=== PATIENT | male | born 1975 | race Caucasian/White ===

== ENCOUNTER 2018-01-21 18:29 | Inpatient (IN) ==
--- NOTE | 2018-01-21 19:00 | ED ---
HPI General Chief Complaint: Psychiatric Symptoms Stated Complaint: Maegan Smith Time Seen by Provider: 01/21/18 18:55 Source: patient Mode of arrival: other ([place]HO[place]) Limitations: no limitations History of Present Illness HPI Narrative: 42-year-old male presents the ED for psychiatric evaluation under [place] act and acted by law enforcement. Per the [place]ane act paperwork the patient made suicidal statements to his girlfriend, sent pictures of himself taking pills. When law enforcement encountered him he jumped into the [place] and was eventually pepper sprayed by [place] patrol and taken into custody. On presentation the patient is drowsy but arouses to voice. He answers questions appropriately. He denies suicidal ideation or any attempt at suicide today. He does endorse drinking "about 2 bottles of [place]." He states that he does not drink every day. He endorses history of asthma. No somatic complaints. Related Data Previous Rx's Medication Instructions Recorded folic acid 1 mg PO DAILY tab 01/23/18 thiamine HCl (vitamin B1) 100 mg PO DAILY tab 01/23/18 Allergies Allergy/AdvReac Type Severity Reaction Status Date / Time hazelnut Allergy Intermediate SOB/ASTHMA Verified 01/21/18 18:52 ATTACK Review of Systems ROS: all other systems reviewed are negative PMFSH Surgical History Surgical History No history of previous surgery (Acute) Family History Family History Father Asthma Sister Asthma Social History Social History Substance History: Active Abuse Second Hand Smoke Exposure: No Smoking Status: Current every day smoker Tobacco Type: Cigarettes Packs Per Day: 2 Cigarettes Per Day: 40.0 How Often Do You Have a Drink Containing Alcohol: 2 to 4 times a month Recent Travel in [facility] within the Last 8 Weeks: No Recent Out of Country Travel within the Last 8 Weeks: No Exam Narrative Exam Narrative: GENERAL: Well-nourished, well-developed white male no acute distress. SKIN: Focused skin assessment warm/dry. HEAD: Atraumatic. Normocephalic. EYES: Pupils equal and round. No scleral icterus. No injection or drainage. ENT: No nasal bleeding or discharge. Mucous membranes pink and moist. NECK: Trachea midline. No JVD. CARDIOVASCULAR: Regular rate and rhythm. No murmur appreciated. RESPIRATORY: No accessory muscle use. Clear to auscultation. Breath sounds equal bilaterally. GASTROINTESTINAL: Abdomen soft, non-tender, nondistended. Hepatic and splenic margins not palpable. MUSCULOSKELETAL: No obvious deformities. No clubbing. No cyanosis. No edema. NEUROLOGICAL: Somnolent, arouses to voice. Follows commands. Answers questions appropriately. No obvious cranial nerve deficits. Motor grossly within normal limits. Normal speech. PSYCHIATRIC: Appears intoxicated. Course Reevaluation(s) Reevaluation #1: Patient found with elevated Tylenol levels. The patient is more alert at this time. I discussed the lab findings with the patient. He states again "I don't know what I took." When asked why he took these medications he states "it was just 1 of those days." He is feeling nauseated and complains of being cold. Vitals stable. Initial Documented Vital Signs Pulse Rate 87 01/21/18 18:36 Respiratory Rate 16 01/21/18 18:36 Blood Pressure 115/83 01/21/18 18:36 Pulse Oximetry 98 01/21/18 18:36 Last Documented Vital Signs Temperature 98.2 F 01/24/18 04:00 Pulse Rate 63 01/24/18 04:00 Respiratory Rate 16 01/24/18 04:00 Blood Pressure 123/71 01/24/18 04:00 Pulse Oximetry 96 01/24/18 04:00 Medical Decision Making VERA Attestation VERA supervised visit: Yes Attestation: The history, exam, and medical decision-making in the associated midlevel provider note were completed with my assistance. I reviewed and agree with the findings presented. I attest that I had a [id number] encounter with the patient on the same day, and personally performed and documented my assessment and findings in the medical record. *My assessment and Findings: This is a 42-year-old male who presented to the emergency department under a Mcfarlane act for concern for depression and intoxication. Initially the patient did not provide any history that he took pills but given the patient's alcohol level was disproportionate to his altered mental status, acetaminophen level was obtained which was 232. Patient was started on n-acetylcysteine and admitted to the intensive care unit. Otherwise labs were unremarkable. MDM Narrative Medical decision making narrative: 42-year-old male presents the ED under [place] act after making suicidal threats to his girlfriend including sending pictures of himself "taking pills." On presentation the patient denies suicidal ideation. He denies taking any pills today. He states that he drank 2 bottles of rum. He is drowsy but arouses to voice, answers questions appropriately, no focal neuro deficits. Vitals stable. Basic lab work ordered and pending. CBC without acute findings. CMP unremarkable. Alcohol level 42. Acetaminophen level 232.9. Tox screen positive for cannabinoids. IV was established. Patient was administered a liter of fluid, acetylcysteine ordered. Poison control contacted. I spoke with Dr. Rawls who agrees to accept the patient to the ICU. Please see medicine and psychiatric notes for disposition. Medical Screen Exam Complete: Yes Emergency Medical Condition: Yes Differential Diagnosis Differential Diagnosis: depression versus mood disorder versus substance- induced mood disorder versus alcohol intoxication versus intentional overdose versus other Lab Data Result diagrams: 01/24/18 06:40 01/23/18 03:50 Lab Results 01/21/18 01/21/18 01/21/18 Range/Units 20:12 20:12 20:12 WBC 10.4 (4.0-11.0) th/mm3 RBC 4.85 (4.50-5.90) mil/mm3 Hgb 14.0 (13.0-17.0) gm/dL Hct 42.5 (39.0-51.0) % MCV 87.7 (80.0-100.0) fL MCH 28.8 (27.0-34.0) pg MCHC 32.9 (32.0-36.0) % RDW 13.9 (11.6-17.2) % Plt Count 263 (150-450) th/mm3 MPV 8.5 (7.0-11.0) fL Neut % (Auto) 82.3 H (16.0-70.0) % Lymph % (Auto) 12.4 (9.0-44.0) % Taney % (Auto) 4.8 (0.0-8.0) % Eos % (Auto) 0.1 (0.0-4.0) % Baso % (Auto) 0.4 (0.0-2.0) % Neut # (Auto) 8.6 H (1.8-7.7) th/mm3 Lymph # (Auto) 1.3 (1.0-4.8) th/mm3 Taney # (Auto) 0.5 (0.0-0.9) th/mm3 Eos # (Auto) 0.0 (0.0-0.4) th/mm3 Baso # (Auto) 0.0 (0.0-0.2) th/mm3 WBC Differential . Differential Comment Auto diff final PT (9.8-11.6) sec INR Ratio APTT (24.3-30.1) sec Fibrinogen (227-377) mg/dL Puncture Site Patient Temperature O2 Saturation (90-100) % ABG pH (7.380-7.420) ABG pCO2 (38-42) mmHg ABG pO2 (61-120) mmHg ABG HCO3 (22-26) mmol/L ABG O2 Content (12.0-20.0) Vol % ABG Base Excess (-2-2) mmol/L ABG Methemoglobin (0-2) % Juan Francisco Test Hemoglobin (12.0-16.0) G/DL Carboxyhemoglobin (0-4) % O2 Delivery Device Inspired O2 % Critical Value Sodium 141 (136-145) meq/L Potassium 3.7 (3.5-5.1) meq/L Chloride 110 H (98-107) meq/L Carbon Dioxide 18.3 L (21.0-32.0) meq/L Anion Gap 13 (5-15) meq/L BUN 11 (7-18) mg/dL Creatinine 1.17 (0.60-1.30) mg/dL Estimated GFR 69 L (>89) mL/min POC Glucose (68-110) mg/dl Random Glucose 116 H (74-106) mg/dL Osmolality (275-295) mosm/kg Calcium 8.6 (8.5-10.1) mg/dL Phosphorus (2.5-4.9) mg/dL Magnesium 2.0 (1.5-2.5) mg/dL Total Bilirubin 0.6 (0.2-1.0) mg/dL AST 14 L (15-37) U/L ALT 26 (12-78) U/L Alkaline Phosphatase 71 (45-117) U/L Total Protein 7.6 (6.4-8.2) g/dL Albumin 4.1 (3.4-5.0) g/dL TSH 1.090 (0.358-3.740) uIU/mL Nasal Screen MRSA (PCR) (Negative) Salicylates (2.8-20.0) mg/dL Urine Opiates Screen (Neg) Acetaminophen 232.9 H* (10.0-30.0) mcg/mL Ur Barbiturates Screen (Neg) Ur Amphetamines Screen (Neg) U Benzodiazepines Scrn (Neg) Urine Cocaine Screen (Neg) U Cannabinoids Screen (Neg) Serum Alcohol 42 H (0-5) mg/dL Blood Type Blood Type Recheck Antibody Screen 01/21/18 01/22/18 01/22/18 Range/Units 20:12 00:20 00:45 WBC (4.0-11.0) th/mm3 RBC (4.50-5.90) mil/mm3 Hgb (13.0-17.0) gm/dL Hct (39.0-51.0) % MCV (80.0-100.0) fL MCH (27.0-34.0) pg MCHC (32.0-36.0) % RDW (11.6-17.2) % Plt Count (150-450) th/mm3 MPV (7.0-11.0) fL Neut % (Auto) (16.0-70.0) % Lymph % (Auto) (9.0-44.0) % Taney % (Auto) (0.0-8.0) % Eos % (Auto) (0.0-4.0) % Baso % (Auto) (0.0-2.0) % Neut # (Auto) (1.8-7.7) th/mm3 Lymph # (Auto) (1.0-4.8) th/mm3 Taney # (Auto) (0.0-0.9) th/mm3 Eos # (Auto) (0.0-0.4) th/mm3 Baso # (Auto) (0.0-0.2) th/mm3 WBC Differential Differential Comment PT (9.8-11.6) sec INR Ratio APTT (24.3-30.1) sec Fibrinogen (227-377) mg/dL Puncture Site Patient Temperature O2 Saturation (90-100) % ABG pH (7.380-7.420) ABG pCO2 (38-42) mmHg ABG pO2 (61-120) mmHg ABG HCO3 (22-26) mmol/L ABG O2 Content (12.0-20.0) Vol % ABG Base Excess (-2-2) mmol/L ABG Methemoglobin (0-2) % Juan [place] Test Hemoglobin (12.0-16.0) G/DL Carboxyhemoglobin (0-4) % O2 Delivery Device Inspired O2 % Critical Value Sodium (136-145) meq/L Potassium (3.5-5.1) meq/L Chloride (98-107) meq/L Carbon Dioxide (21.0-32.0) meq/L Anion Gap (5-15) meq/L BUN (7-18) mg/dL Creatinine (0.60-1.30) mg/dL Estimated GFR (>89) mL/min POC Glucose (68-110) mg/dl Random Glucose (74-106) mg/dL Osmolality 301 H (275-295) mosm/kg Calcium (8.5-10.1) mg/dL Phosphorus (2.5-4.9) mg/dL Magnesium (1.5-2.5) mg/dL Total Bilirubin (0.2-1.0) mg/dL AST (15-37) U/L ALT (12-78) U/L Alkaline Phosphatase (45-117) U/L Total Protein (6.4-8.2) g/dL Albumin (3.4-5.0) g/dL TSH (0.358-3.740) uIU/mL Nasal Screen MRSA (PCR) (Negative) Salicylates 9.9 (2.8-20.0) mg/dL Urine Opiates Screen Neg (Neg) Acetaminophen (10.0-30.0) mcg/mL Ur Barbiturates Screen Neg (Neg) Ur Amphetamines Screen Neg (Neg) U Benzodiazepines Scrn Neg (Neg) Urine Cocaine Screen Neg (Neg) U Cannabinoids Screen Pos H (Neg) Serum Alcohol (0-5) mg/dL Blood Type Blood Type Recheck Antibody Screen 01/22/18 01/22/18 01/22/18 Range/Units 00:45 00:45 00:52 WBC (4.0-11.0) th/mm3 RBC (4.50-5.90) mil/mm3 Hgb (13.0-17.0) gm/dL Hct (39.0-51.0) % MCV (80.0-100.0) fL MCH (27.0-34.0) pg MCHC (32.0-36.0) % RDW (11.6-17.2) % Plt Count (150-450) th/mm3 MPV (7.0-11.0) fL Neut % (Auto) (16.0-70.0) % Lymph % (Auto) (9.0-44.0) % Taney % (Auto) (0.0-8.0) % Eos % (Auto) (0.0-4.0) % Baso % (Auto) (0.0-2.0) % Neut # (Auto) (1.8-7.7) th/mm3 Lymph # (Auto) (1.0-4.8) th/mm3 Taney # (Auto) (0.0-0.9) th/mm3 Eos # (Auto) (0.0-0.4) th/mm3 Baso # (Auto) (0.0-0.2) th/mm3 WBC Differential Differential Comment PT 11.6 (9.8-11.6) sec INR 1.1 Ratio APTT 23.2 L (24.3-30.1) sec Fibrinogen (227-377) mg/dL Puncture Site Patient Temperature O2 Saturation (90-100) % ABG pH (7.380-7.420) ABG pCO2 (38-42) mmHg ABG pO2 (61-120) mmHg ABG HCO3 (22-26) mmol/L ABG O2 Content (12.0-20.0) Vol % ABG Base Excess (-2-2) mmol/L ABG Methemoglobin (0-2) % Juan Francisco Test Hemoglobin (12.0-16.0) G/DL Carboxyhemoglobin (0-4) % O2 Delivery Device Inspired O2 % Critical Value Sodium (136-145) meq/L Potassium (3.5-5.1) meq/L Chloride (98-107) meq/L Carbon Dioxide (21.0-32.0) meq/L Anion Gap (5-15) meq/L BUN (7-18) mg/dL Creatinine (0.60-1.30) mg/dL Estimated GFR (>89) mL/min POC Glucose 150 H (68-110) mg/dl Random Glucose (74-106) mg/dL Osmolality (275-295) mosm/kg Calcium (8.5-10.1) mg/dL Phosphorus (2.5-4.9) mg/dL Magnesium 2.0 (1.5-2.5) mg/dL Total Bilirubin (0.2-1.0) mg/dL AST (15-37) U/L ALT (12-78) U/L Alkaline Phosphatase (45-117) U/L Total Protein (6.4-8.2) g/dL Albumin (3.4-5.0) g/dL TSH (0.358-3.740) uIU/mL Nasal Screen MRSA (PCR) (Negative) Salicylates (2.8-20.0) mg/dL Urine Opiates Screen (Neg) Acetaminophen (10.0-30.0) mcg/mL Ur Barbiturates Screen (Neg) Ur Amphetamines Screen (Neg) U Benzodiazepines Scrn (Neg) Urine Cocaine Screen (Neg) U Cannabinoids Screen (Neg) Serum Alcohol (0-5) mg/dL Blood Type Blood Type Recheck Antibody Screen 01/22/18 01/22/18 01/22/18 Range/Units 02:00 02:00 02:45 WBC (4.0-11.0) th/mm3 RBC (4.50-5.90) mil/mm3 Hgb (13.0-17.0) gm/dL Hct (39.0-51.0) % MCV (80.0-100.0) fL MCH (27.0-34.0) pg MCHC (32.0-36.0) % RDW (11.6-17.2) % Plt Count (150-450) th/mm3 MPV (7.0-11.0) fL Neut % (Auto) (16.0-70.0) % Lymph % (Auto) (9.0-44.0) % Taney % (Auto) (0.0-8.0) % Eos % (Auto) (0.0-4.0) % Baso % (Auto) (0.0-2.0) % Neut # (Auto) (1.8-7.7) th/mm3 Lymph # (Auto) (1.0-4.8) th/mm3 Taney # (Auto) (0.0-0.9) th/mm3 Eos # (Auto) (0.0-0.4) th/mm3 Baso # (Auto) (0.0-0.2) th/mm3 WBC Differential Differential Comment PT (9.8-11.6) sec INR Ratio APTT (24.3-30.1) sec Fibrinogen (227-377) mg/dL Puncture Site Left radial Patient Temperature 98.6 O2 Saturation 95 (90-100) % ABG pH 7.41 (7.380-7.420) ABG pCO2 37 L (38-42) mmHg ABG pO2 107 (61-120) mmHg ABG HCO3 23 (22-26) mmol/L ABG O2 Content 17.5 (12.0-20.0) Vol % ABG Base Excess -1.0 (-2-2) mmol/L ABG Methemoglobin 1.0 (0-2) % Juan Francisco Test Present Hemoglobin 13.0 (12.0-16.0) G/DL Carboxyhemoglobin 1.9 (0-4) % O2 Delivery Device Room air Inspired O2 21 % Critical Value No Sodium 145 (136-145) meq/L Potassium 3.7 (3.5-5.1) meq/L Chloride 108 H (98-107) meq/L Carbon Dioxide 22.4 (21.0-32.0) meq/L Anion Gap 15 (5-15) meq/L BUN 11 (7-18) mg/dL Creatinine 1.07 (0.60-1.30) mg/dL Estimated GFR 76 L (>89) mL/min POC Glucose (68-110) mg/dl Random Glucose 173 H (74-106) mg/dL Osmolality (275-295) mosm/kg Calcium 7.7 L D (8.5-10.1) mg/dL Phosphorus 3.6 (2.5-4.9) mg/dL Magnesium (1.5-2.5) mg/dL Total Bilirubin (0.2-1.0) mg/dL AST (15-37) U/L ALT (12-78) U/L Alkaline Phosphatase (45-117) U/L Total Protein (6.4-8.2) g/dL Albumin (3.4-5.0) g/dL TSH (0.358-3.740) uIU/mL Nasal Screen MRSA (PCR) (Negative) Salicylates (2.8-20.0) mg/dL Urine Opiates Screen (Neg) Acetaminophen 146.9 H (10.0-30.0) mcg/mL Ur Barbiturates Screen (Neg) Ur Amphetamines Screen (Neg) U Benzodiazepines Scrn (Neg) Urine Cocaine Screen (Neg) U Cannabinoids Screen (Neg) Serum Alcohol (0-5) mg/dL Blood Type Blood Type Recheck Antibody Screen 01/22/18 01/22/18 01/22/18 Range/Units 03:15 03:50 03:50 WBC (4.0-11.0) th/mm3 RBC (4.50-5.90) mil/mm3 Hgb 13.4 (13.0-17.0) gm/dL Hct (39.0-51.0) % MCV (80.0-100.0) fL MCH (27.0-34.0) pg MCHC (32.0-36.0) % RDW (11.6-17.2) % Plt Count (150-450) th/mm3 MPV (7.0-11.0) fL Neut % (Auto) (16.0-70.0) % Lymph % (Auto) (9.0-44.0) % Taney % (Auto) (0.0-8.0) % Eos % (Auto) (0.0-4.0) % Baso % (Auto) (0.0-2.0) % Neut # (Auto) (1.8-7.7) th/mm3 Lymph # (Auto) (1.0-4.8) th/mm3 Taney # (Auto) (0.0-0.9) th/mm3 Eos # (Auto) (0.0-0.4) th/mm3 Baso # (Auto) (0.0-0.2) th/mm3 WBC Differential Differential Comment PT (9.8-11.6) sec INR Ratio APTT (24.3-30.1) sec Fibrinogen (227-377) mg/dL Puncture Site Patient Temperature O2 Saturation (90-100) % ABG pH (7.380-7.420) ABG pCO2 (38-42) mmHg ABG pO2 (61-120) mmHg ABG HCO3 (22-26) mmol/L ABG O2 Content (12.0-20.0) Vol % ABG Base Excess (-2-2) mmol/L ABG Methemoglobin (0-2) % Juan Francisco Test Hemoglobin (12.0-16.0) G/DL Carboxyhemoglobin (0-4) % O2 Delivery Device Inspired O2 % Critical Value Sodium (136-145) meq/L Potassium (3.5-5.1) meq/L Chloride (98-107) meq/L Carbon Dioxide (21.0-32.0) meq/L Anion Gap (5-15) meq/L BUN (7-18) mg/dL Creatinine (0.60-1.30) mg/dL Estimated GFR (>89) mL/min POC Glucose (68-110) mg/dl Random Glucose (74-106) mg/dL Osmolality (275-295) mosm/kg Calcium (8.5-10.1) mg/dL Phosphorus (2.5-4.9) mg/dL Magnesium (1.5-2.5) mg/dL Total Bilirubin (0.2-1.0) mg/dL AST (15-37) U/L ALT (12-78) U/L Alkaline Phosphatase (45-117) U/L Total Protein (6.4-8.2) g/dL Albumin (3.4-5.0) g/dL TSH (0.358-3.740) uIU/mL Nasal Screen MRSA (PCR) Not detected (Negative) Salicylates (2.8-20.0) mg/dL Urine Opiates Screen (Neg) Acetaminophen (10.0-30.0) mcg/mL Ur Barbiturates Screen (Neg) Ur Amphetamines Screen (Neg) U Benzodiazepines Scrn (Neg) Urine Cocaine Screen (Neg) U Cannabinoids Screen (Neg) Serum Alcohol (0-5) mg/dL Blood Type A Positive Blood Type Recheck Required Antibody Screen Negative 01/22/18 01/22/18 01/22/18 Range/Units 03:50 12:55 15:27 WBC (4.0-11.0) th/mm3 RBC (4.50-5.90) mil/mm3 Hgb 12.8 L 13.1 (13.0-17.0) gm/dL Hct (39.0-51.0) % MCV (80.0-100.0) fL MCH (27.0-34.0) pg MCHC (32.0-36.0) % RDW (11.6-17.2) % Plt Count (150-450) th/mm3 MPV (7.0-11.0) fL Neut % (Auto) (16.0-70.0) % Lymph % (Auto) (9.0-44.0) % Taney % (Auto) (0.0-8.0) % Eos % (Auto) (0.0-4.0) % Baso % (Auto) (0.0-2.0) % Neut # (Auto) (1.8-7.7) th/mm3 Lymph # (Auto) (1.0-4.8) th/mm3 Taney # (Auto) (0.0-0.9) th/mm3 Eos # (Auto) (0.0-0.4) th/mm3 Baso # (Auto) (0.0-0.2) th/mm3 WBC Differential Differential Comment PT (9.8-11.6) sec INR Ratio APTT (24.3-30.1) sec Fibrinogen 274 (227-377) mg/dL Puncture Site Patient Temperature O2 Saturation (90-100) % ABG pH (7.380-7.420) ABG pCO2 (38-42) mmHg ABG pO2 (61-120) mmHg ABG HCO3 (22-26) mmol/L ABG O2 Content (12.0-20.0) Vol % ABG Base Excess (-2-2) mmol/L ABG Methemoglobin (0-2) % Juan Francisco Test Hemoglobin (12.0-16.0) G/DL Carboxyhemoglobin (0-4) % O2 Delivery Device Inspired O2 % Critical Value Sodium (136-145) meq/L Potassium (3.5-5.1) meq/L Chloride (98-107) meq/L Carbon Dioxide (21.0-32.0) meq/L Anion Gap (5-15) meq/L BUN (7-18) mg/dL Creatinine (0.60-1.30) mg/dL Estimated GFR (>89) mL/min POC Glucose (68-110) mg/dl Random Glucose (74-106) mg/dL Osmolality (275-295) mosm/kg Calcium (8.5-10.1) mg/dL Phosphorus (2.5-4.9) mg/dL Magnesium (1.5-2.5) mg/dL Total Bilirubin (0.2-1.0) mg/dL AST (15-37) U/L ALT (12-78) U/L Alkaline Phosphatase (45-117) U/L Total Protein (6.4-8.2) g/dL Albumin (3.4-5.0) g/dL TSH (0.358-3.740) uIU/mL Nasal Screen MRSA (PCR) (Negative) Salicylates (2.8-20.0) mg/dL Urine Opiates Screen (Neg) Acetaminophen (10.0-30.0) mcg/mL Ur Barbiturates Screen (Neg) Ur Amphetamines Screen (Neg) U Benzodiazepines Scrn (Neg) Urine Cocaine Screen (Neg) U Cannabinoids Screen (Neg) Serum Alcohol (0-5) mg/dL Blood Type Blood Type Recheck Antibody Screen 01/22/18 01/22/18 01/22/18 Range/Units 15:27 20:47 20:47 WBC (4.0-11.0) th/mm3 RBC (4.50-5.90) mil/mm3 Hgb (13.0-17.0) gm/dL Hct (39.0-51.0) % MCV (80.0-100.0) fL MCH (27.0-34.0) pg MCHC (32.0-36.0) % RDW (11.6-17.2) % Plt Count (150-450) th/mm3 MPV (7.0-11.0) fL Neut % (Auto) (16.0-70.0) % Lymph % (Auto) (9.0-44.0) % Taney % (Auto) (0.0-8.0) % Eos % (Auto) (0.0-4.0) % Baso % (Auto) (0.0-2.0) % Neut # (Auto) (1.8-7.7) th/mm3 Lymph # (Auto) (1.0-4.8) th/mm3 Taney # (Auto) (0.0-0.9) th/mm3 Eos # (Auto) (0.0-0.4) th/mm3 Baso # (Auto) (0.0-0.2) th/mm3 WBC Differential Differential Comment PT 12.7 H (9.8-11.6) sec INR 1.3 Ratio APTT (24.3-30.1) sec Fibrinogen (227-377) mg/dL Puncture Site Patient Temperature O2 Saturation (90-100) % ABG pH (7.380-7.420) ABG pCO2 (38-42) mmHg ABG pO2 (61-120) mmHg ABG HCO3 (22-26) mmol/L ABG O2 Content (12.0-20.0) Vol % ABG Base Excess (-2-2) mmol/L ABG Methemoglobin (0-2) % [place] Francisco Test Hemoglobin (12.0-16.0) G/DL Carboxyhemoglobin (0-4) % O2 Delivery Device Inspired O2 % Critical Value Sodium 144 140 (136-145) meq/L Potassium 3.1 L 3.3 L (3.5-5.1) meq/L Chloride 109 H 106 (98-107) meq/L Carbon Dioxide 25.9 26.0 (21.0-32.0) meq/L Anion Gap 9 8 (5-15) meq/L BUN 9 9 (7-18) mg/dL Creatinine 1.29 1.26 (0.60-1.30) mg/dL Estimated GFR 61 L 63 L (>89) mL/min POC Glucose (68-110) mg/dl Random Glucose 91 81 (74-106) mg/dL Osmolality (275-295) mosm/kg Calcium 8.3 L 8.4 L (8.5-10.1) mg/dL Phosphorus (2.5-4.9) mg/dL Magnesium (1.5-2.5) mg/dL Total Bilirubin 0.3 0.3 (0.2-1.0) mg/dL AST 13 L 11 L (15-37) U/L ALT 27 26 (12-78) U/L Alkaline Phosphatase 60 58 (45-117) U/L Total Protein 6.4 D 6.4 (6.4-8.2) g/dL Albumin 3.2 L D 3.1 L (3.4-5.0) g/dL TSH (0.358-3.740) uIU/mL Nasal Screen MRSA (PCR) (Negative) Salicylates (2.8-20.0) mg/dL Urine Opiates Screen (Neg) Acetaminophen 5.3 L (10.0-30.0) mcg/mL Ur Barbiturates Screen (Neg) Ur Amphetamines Screen (Neg) U Benzodiazepines Scrn (Neg) Urine Cocaine Screen (Neg) U Cannabinoids Screen (Neg) Serum Alcohol (0-5) mg/dL Blood Type Blood Type Recheck Antibody Screen 01/22/18 01/23/18 01/23/18 Range/Units 20:47 03:49 03:50 WBC 12.0 H (4.0-11.0) th/mm3 RBC 4.39 L (4.50-5.90) mil/mm3 Hgb 12.8 L 12.8 L (13.0-17.0) gm/dL Hct 38.0 L (39.0-51.0) % MCV 86.4 (80.0-100.0) fL MCH 29.1 (27.0-34.0) pg MCHC 33.7 (32.0-36.0) % RDW 14.0 (11.6-17.2) % Plt Count 245 (150-450) th/mm3 MPV 8.6 (7.0-11.0) fL Neut % (Auto) 72.0 H (16.0-70.0) % Lymph % (Auto) 20.8 (9.0-44.0) % Taney % (Auto) 5.7 (0.0-8.0) % Eos % (Auto) 0.9 (0.0-4.0) % Baso % (Auto) 0.6 (0.0-2.0) % Neut # (Auto) 8.7 H (1.8-7.7) th/mm3 Lymph # (Auto) 2.5 (1.0-4.8) th/mm3 Taney # (Auto) 0.7 (0.0-0.9) th/mm3 Eos # (Auto) 0.1 (0.0-0.4) th/mm3 Baso # (Auto) 0.1 (0.0-0.2) th/mm3 WBC Differential . Differential Comment Auto diff final PT 12.6 H (9.8-11.6) sec INR 1.2 Ratio APTT (24.3-30.1) sec Fibrinogen (227-377) mg/dL Puncture Site Patient Temperature O2 Saturation (90-100) % ABG pH (7.380-7.420) ABG pCO2 (38-42) mmHg ABG pO2 (61-120) mmHg ABG HCO3 (22-26) mmol/L ABG O2 Content (12.0-20.0) Vol % ABG Base Excess (-2-2) mmol/L ABG Methemoglobin (0-2) % Juan Francisco Test Hemoglobin (12.0-16.0) G/DL Carboxyhemoglobin (0-4) % O2 Delivery Device Inspired O2 % Critical Value Sodium (136-145) meq/L Potassium (3.5-5.1) meq/L Chloride (98-107) meq/L Carbon Dioxide (21.0-32.0) meq/L Anion Gap (5-15) meq/L BUN (7-18) mg/dL Creatinine (0.60-1.30) mg/dL Estimated GFR (>89) mL/min POC Glucose (68-110) mg/dl Random Glucose (74-106) mg/dL Osmolality (275-295) mosm/kg Calcium (8.5-10.1) mg/dL Phosphorus (2.5-4.9) mg/dL Magnesium (1.5-2.5) mg/dL Total Bilirubin (0.2-1.0) mg/dL AST (15-37) U/L ALT (12-78) U/L Alkaline Phosphatase (45-117) U/L Total Protein (6.4-8.2) g/dL Albumin (3.4-5.0) g/dL TSH (0.358-3.740) uIU/mL Nasal Screen MRSA (PCR) (Negative) Salicylates (2.8-20.0) mg/dL Urine Opiates Screen (Neg) Acetaminophen (10.0-30.0) mcg/mL Ur Barbiturates Screen (Neg) Ur Amphetamines Screen (Neg) U Benzodiazepines Scrn (Neg) Urine Cocaine Screen (Neg) U Cannabinoids Screen (Neg) Serum Alcohol (0-5) mg/dL Blood Type Blood Type Recheck Antibody Screen 01/23/18 01/24/18 Range/Units 03:50 06:40 WBC 9.2 (4.0-11.0) th/mm3 RBC 4.31 L (4.50-5.90) mil/mm3 Hgb 12.6 L (13.0-17.0) gm/dL Hct 36.6 L (39.0-51.0) % MCV 84.7 (80.0-100.0) fL MCH 29.3 (27.0-34.0) pg MCHC 34.5 (32.0-36.0) % RDW 14.0 (11.6-17.2) % Plt Count 243 (150-450) th/mm3 MPV 8.9 (7.0-11.0) fL Neut % (Auto) 70.3 H (16.0-70.0) % Lymph % (Auto) 21.8 (9.0-44.0) % Taney % (Auto) 5.8 (0.0-8.0) % Eos % (Auto) 1.6 (0.0-4.0) % Baso % (Auto) 0.5 (0.0-2.0) % Neut # (Auto) 6.5 (1.8-7.7) th/mm3 Lymph # (Auto) 2.0 (1.0-4.8) th/mm3 Taney # (Auto) 0.5 (0.0-0.9) th/mm3 Eos # (Auto) 0.1 (0.0-0.4) th/mm3 Baso # (Auto) 0.0 (0.0-0.2) th/mm3 WBC Differential . Differential Comment Auto diff final PT (9.8-11.6) sec INR Ratio APTT (24.3-30.1) sec Fibrinogen (227-377) mg/dL Puncture Site Patient Temperature O2 Saturation (90-100) % ABG pH (7.380-7.420) ABG pCO2 (38-42) mmHg ABG pO2 (61-120) mmHg ABG HCO3 (22-26) mmol/L ABG O2 Content (12.0-20.0) Vol % ABG Base Excess (-2-2) mmol/L ABG Methemoglobin (0-2) % [place] Test Hemoglobin (12.0-16.0) G/DL Carboxyhemoglobin (0-4) % O2 Delivery Device Inspired O2 % Critical Value Sodium 142 (136-145) meq/L Potassium 3.3 L (3.5-5.1) meq/L Chloride 107 (98-107) meq/L Carbon Dioxide 28.0 (21.0-32.0) meq/L Anion Gap 7 (5-15) meq/L BUN 8 (7-18) mg/dL Creatinine 1.01 (0.60-1.30) mg/dL Estimated GFR 81 L (>89) mL/min POC Glucose (68-110) mg/dl Random Glucose 110 H (74-106) mg/dL Osmolality (275-295) mosm/kg Calcium 8.5 (8.5-10.1) mg/dL Phosphorus (2.5-4.9) mg/dL Magnesium (1.5-2.5) mg/dL Total Bilirubin 0.4 (0.2-1.0) mg/dL AST 10 L (15-37) U/L ALT 22 (12-78) U/L Alkaline Phosphatase 56 (45-117) U/L Total Protein 6.2 L (6.4-8.2) g/dL Albumin 3.1 L (3.4-5.0) g/dL TSH (0.358-3.740) uIU/mL Nasal Screen MRSA (PCR) (Negative) Salicylates (2.8-20.0) mg/dL Urine Opiates Screen (Neg) Acetaminophen (10.0-30.0) mcg/mL Ur Barbiturates Screen (Neg) Ur Amphetamines Screen (Neg) U Benzodiazepines Scrn (Neg) Urine Cocaine Screen (Neg) U Cannabinoids Screen (Neg) Serum Alcohol (0-5) mg/dL Blood Type Blood Type Recheck Antibody Screen Imaging Data Radiologist's impression: Abdomen/Pelvis CT 01/22/18 00:00 CONCLUSION: 1. No acute findings within the abdomen and pelvis. Scattered colonic diverticula. Chest X-Ray 01/23/18 02:08 CONCLUSION: The lungs are clear. Discharge Plan Discharge Disposition Patient Disposition: 30 Still Patient Discharge Condition Condition: Stable Discharge Order Discharge Orders: Discharge Order (Routine); Ordered 01/24/18 Ordered By: Iftikhar Lopez Discharge Details Discharge Comment: may go to regular psych Physicians Team ED Provider: Isabelle Barraza ED Midlevel Provider: Yuliet Fleming Primary Care Provider: Primary Care Ora Rowe Attending Provider: Iftikhar Lopez Other Providers: Raymond Hoover Harsh V Status ED Status: Left Department Discharge Information Discharge Date/Time: 01/22/18 04:33
[2018-01-21 20:27] LABS: Baso % (Auto) 0.4 % (0.0-2.0); Eos % (Auto) 0.1 % (0.0-4.0); Hematocrit 42.5 % (39.0-51.0); Lymph # (Auto) 1.3 th/mm3 (1.0-4.8); Lymph % (Auto) 12.4 % (9.0-44.0); Mean Corpuscular HGB Conc 32.9 % (32.0-36.0); Mean Corpuscular Hemoglobin 28.8 pg (27.0-34.0); Mean Corpuscular Volume 87.7 fL (80.0-100.0); Mean Platelet Volume 8.5 fL (7.0-11.0); Mono # (Auto) 0.5 th/mm3 (0.0-0.9); Mono % (Auto) 4.8 % (0.0-8.0); Neut # (Auto) 8.6 th/mm3 (1.8-7.7); Neut % (Auto) 82.3 % (16.0-70.0); Platelet Count 263 th/mm3 (150-450); Red Blood Count 4.85 mil/mm3 (4.50-5.90); Red Cell Distribution Width 13.9 % (11.6-17.2); White Blood Count 10.4 th/mm3 (4.0-11.0)
[2018-01-21 20:49] LABS: Albumin 4.1 g/dL (3.4-5.0); Anion Gap 13 meq/L (5-15); Aspartate Aminotransferase 14 U/L (15-37); Blood Urea Nitrogen 11 mg/dL (7-18); Calcium 8.6 mg/dL (8.5-10.1); Carbon Dioxide 18.3 meq/L (21.0-32.0); Chloride 110 meq/L (98-107); Glomerular Filtration Rate 69 mL/min (>89); Glucose,Random 116 mg/dL (74-106); Potassium 3.7 meq/L (3.5-5.1); Sodium 141 meq/L (136-145)
[2018-01-21 21:01] LABS: Alanine Aminotransferase 26 U/L (12-78); Alkaline Phosphatase 71 U/L (45-117); Total Protein 7.6 g/dL (6.4-8.2)
[2018-01-21 21:15] LABS: Alcohol 42 mg/dL (0-5)
[2018-01-22] MEDS ORDERED: Sod Chloride 0.9% Inj 1,000 ML IV.SIG ONE (00:08)
[2018-01-22] MEDS ORDERED: DEXTROSE 5% IV.SIG ONE ×6 (00:08)
[2018-01-22] MEDS ORDERED: WATER IV.SIG ONE ×6 (00:08)
[2018-01-22] MEDS ORDERED: ACETYLCYSTEINE IV.SIG ONE ×6 (00:08)
[2018-01-22 00:50] LABS: Amphetamine Screen,Urine Neg (Neg); Barbiturate Screen,Urine Neg (Neg); Cannabinoid Screen,Urine Pos (Neg); Cocaine Screen,Urine Neg (Neg)
[2018-01-22 00:51] LABS: Opiate Screen,Urine Neg (Neg)
[2018-01-22 01:17] LABS: Activated Partial Thrombo Time 23.2 sec (24.3-30.1); INR 1.1 Ratio; Prothrombin Time 11.6 sec (9.8-11.6)
[2018-01-22] MEDS ORDERED: Bisacodyl 10 MG Supp RECTAL PRN (02:05)
--- NOTE | 2018-01-22 02:11 | P.HPCC ---
History of Present Illness Service: Critical care medicine Primary Care Physician: No Primary Care Physician Chief Complaint: Tylenol ingestion History of Present Illness: 42-year-old male with past medical history of asthma who was brought into [facility] emergency department by law enforcement under [place] Act. Reportedly he had made suicidal statements to his girlfriend and had texted her pictures of himself taking pills. When law enforcement encountered him he jumped into the [employer] and eventually was subdued with the aid of pepper spray. When he was evaluated by the emergency department provider he denied suicidality and said only that he "drank 2 bottles of Captain [place]". Laboratory workup revealed EtOH level of 42, Tylenol level 233, salicylate level 9.9, UDS +THC. Bicarb was 18 with anion gap of 13 and normal creatinine. Transaminases are not elevated. Coags are pending. Mucomyst IV has been initiated. He has had some vomiting. When I confronted him, he eventually admitted to taking multiple pills "sometime during the afternoon [of 01/21]" stating "I cleaned out my medicine cabinet". He states he thought these were primarily anti-inflammatory medications that he had been prescribed when he had a prior knee injury. He denies any prior prescriptions for psychotropic medications, anticonvulsants, or antihypertensives and denies ingestion of iron. He has a prior history of [place] act in 2016 after a breakup with his girlfriend when he told law enforcement that he "wanted to wrap his vehicle around a tree and ". He apparently refused labs during that ED visit but had indicated that he drank "a couple of bottles of Captain" in an effort to fall asleep. He was evaluated by psychiatry but was not hospitalized. States he has had some abdominal pain and bloody stools for 1 month related to "diverticulitis". - Diagnosis (1) Psychiatric exam requested by authority (2) Acetaminophen overdose (3) Marijuana abuse (4) Tobacco abuse (5) Asthma (6) Alcohol consumption binge drinking (7) Vomiting (8) Hyperglycemia Inpatient Certification: I certify that the inpatient services were ordered in accordance with Medicare regulations governing the order. This includes certification that hospital inpatient services are reasonable and necessary and in the case of services not specified as inpatient-only under 42 CFR 419.22(n), that they are appropriately provided as inpatient services in accordance to with the 2-midnight benchmark under 43 CFR 412.3(e) Estimated Total Length of Stay (Days): 4 Plans for Post Hospital Care: Not yet determined Review of Systems All other systems reviewed negative except as stated in HPI PMFSH - History History Provided By: Patient - Medical History Medical History: Medical History (Last Updated 01/22/18 @ 02:40 by Elsi Rawls MD) Asthma Diverticulitis - Surgical History Surgical History: Surgical History (Last Reviewed 01/25/18 @ 13:15 by IVAN Bishop) No history of previous surgery - Family History Family History: Family History (Last Updated 01/22/18 @ 02:40 by Elsi Rawls MD) Father Asthma Sister Asthma - Tobacco History Second Hand Smoke Exposure: No Smoking Status: Current every day smoker Packs Per Day: 2 - Alcohol History How Often Do You Have a Drink Containing Alcohol: 2 to 4 times a month - Substance Use History Substance History: Active Abuse - Substance Use Type Alcohol Status: Active - Travel History [facility] Travel in the [facility] Within the Last 8 Weeks: No Recent Travel Out of the Country Within the Last 8 Weeks: No - Immunization History Tetanus Immunization: >5 Years Medications and Allergies Active Medications: Active Medications Albuterol (Albuterol Neb (Mark)) 2.5 mg NEB Q2HR NEB PRN PRN Reason: SHORTNESS OF BREATH/WHEEZING Lactated Ringer's (Lr 1000 Ml Inj) 1,000 mls @ 100 mls/hr IV.CONT .Q10H MARK Sodium Chloride (Ns Flush) 2 ml IV.FLUSH PRN PRN PRN Reason: FLUSH AFTER USING IV ACCESS Allergies Allergy/AdvReac Type Severity Reaction Status Date / Time hazelnut Allergy Intermediate SOB/ASTHMA Verified 01/21/18 18:52 ATTACK Results - Labs CBC & Chem 7: 01/24/18 06:40 01/23/18 03:50 Labs: Short CBC 01/21/18 Range/Units 20:12 WBC 10.4 (4.0-11.0) th/mm3 Hgb 14.0 (13.0-17.0) gm/dL Hct 42.5 (39.0-51.0) % Plt Count 263 (150-450) th/mm3 BMP 01/21/18 20:12 Sodium 141 Potassium 3.7 Chloride 110 H Carbon Dioxide 18.3 L BUN 11 Creatinine 1.17 Calcium 8.6 Liver Function 01/21/18 Range/Units 20:12 Total Bilirubin 0.6 (0.2-1.0) mg/dL AST 14 L (15-37) U/L ALT 26 (12-78) U/L Alkaline Phosphatase 71 (45-117) U/L Albumin 4.1 (3.4-5.0) g/dL Exam Vital signs: Vital Signs 01/21/18 18:36 01/21/18 20:40 01/22/18 00:54 Temperature 97.9 F Pulse Rate 87 72 Respiratory Rate 16 Blood Pressure 115/83 116/74 Pulse Oximetry 98 98 96 01/22/18 00:55 01/22/18 02:04 Temperature Pulse Rate 68 65 Respiratory Rate 18 18 Blood Pressure 162/88 H 172/92 H Pulse Oximetry 97 Intake & Output 01/21/18 01/21/18 01/22/18 06:59 18:59 06:59 Intake Total 1000 / 1000 Balance 1000 / 1000 Weight 95.451 kg Intake: IV 1000 / 1000 NS Inj 1,000 ML @ Wide Open IV. 1000 / 1000 SIG BOLUS ONE Rx#:[id number] Narrative: GENERAL: Well-nourished, well-developed patient who is laying in ED stretcher, repeatedly asking for water to drink. SKIN: Warm and dry. HEAD: Atraumatic. Normocephalic. EYES: Pupils equal and round, 3 mm and reactive to 2 mm bilaterally.. No scleral icterus. Bilateral conjunctival injection. ENT: No nasal bleeding. +rhinorrhea. NECK: Trachea midline. No JVD. CARDIOVASCULAR: Regular rate and rhythm. No murmurs rubs or gallops. RESPIRATORY: Breathing comfortably no accessory muscle use. On room air. Clear to auscultation bilaterally. GASTROINTESTINAL: Abdomen soft, non-tender, nondistended. Bowel sounds present. MUSCULOSKELETAL: Extremities without clubbing, cyanosis, or edema. No obvious deformities. NEUROLOGICAL: Awake and alert, oriented to person place year.. No obvious cranial nerve deficits. Motor grossly within normal limits without focal deficit, moving all extremities.. Normal speech. Caprini VTE Risk Assessment Caprini VTE Risk Assessment: Moderate/High Risk (score >= 2) Caprini Risk Assessment Model: Point Value = 1 Point Value = 2 Point Value = 3 Point Value = 5 Age 41-60 Minor surgery BMI > 25 kg/m2 Swollen legs Varicose veins or History of unexplained or recurrent spontaneous Oral contraceptives or hormone replacement Sepsis (< 1 month) Serious lung disease, including pneumonia (< 1 month) Abnormal pulmonary function Acute myocardial infarction Congestive heart failure (< 1 month) History of inflammatory bowel disease Medical patient at bed rest Age 61-74 Arthroscopic surgery Major open surgery (> 45 min) Laparoscopic surgery (> 45 min) Malignancy Confined to bed (> 72 hours) Immobilizing plaster cast Central venous access Age >= 75 History of VTE Family history of VTE Factor V Leiden Prothrombin [id number] Lupus anticoagulant Anticardiolipin antibodies Elevated serum homocysteine Heparin-induced thrombocytopenia Other congenital or acquired thrombophilia Stroke (< 1 month) Elective arthroplasty Hip, pelvis, or leg fracture Acute spinal cord injury (< 1 month) Prophylaxis Regimen: Total Risk Factor Score Risk Level Prophylaxis Regimen 0-1 Low Early ambulation 2 Moderate Order ONE of the following: *Sequential Compression Device (SCD) *Heparin 5000 units SQ BID 3-4 Higher Order ONE of the following medications: *Heparin 5000 units SQ TID *Enoxaparin/Lovenox 40 mg SQ daily (WT < 150 kg, CrCl > 30 mL/min) *Enoxaparin/Lovenox 30 mg SQ daily (WT < 150 kg, CrCl > 10-29 mL/min) *Enoxaparin/Lovenox 30 mg SQ BID (WT < 150 kg, CrCl > 30 mL/min) AND/OR *Sequential Compression Device (SCD) 5 or more Highest Order ONE of the following medications: *Heparin 5000 units SQ TID (Preferred with Epidurals) *Enoxaparin/Lovenox 40 mg SQ daily (WT < 150 kg, CrCl > 30 mL/min) *Enoxaparin/Lovenox 30 mg SQ daily (WT < 150 kg, CrCl > 10-29 mL/min) *Enoxaparin/Lovenox 30 mg SQ BID (WT < 150 kg, CrCl > 30 mL/min) AND *Sequential Compression Device (SCD) Assessment and Plan - Problem List (1) Psychiatric exam requested by authority Code(s): Z04.6 - Encounter for general psychiatric examination, requested by authority Status: Acute (2) Acetaminophen overdose Code(s): T39.1X1A - Poisoning by 4-Aminophenol derivatives, accidental ( unintentional), initial encounter Status: Acute (3) Marijuana abuse Code(s): F12.10 - Cannabis abuse, uncomplicated Status: Chronic (4) Tobacco abuse Code(s): Z72.0 - Tobacco use Status: Chronic (5) Asthma Code(s): J45.909 - Unspecified asthma, uncomplicated Status: Chronic (6) Alcohol consumption binge drinking Code(s): F10.10 - Alcohol abuse, uncomplicated Status: Chronic (7) Vomiting Code(s): R11.10 - Vomiting, unspecified Status: Acute (8) Hyperglycemia Code(s): R73.9 - Hyperglycemia, unspecified Status: Acute - Assessment and Plan Plan: NEURO: Acetaminophen overdose Alcohol abuse Marijuana use Mucomyst IV 72 hour protocol has been ordered, however will followup LFT, acetaminophen level and INR prior to 20 hour manju to guide duration of therapy ( ordered for 21:00 on 01/22). Time of ingestion is unclear but appears mucomyst is being started within 12 hours of ingestion and transaminases are not elevated. Repeat acetaminophen level is downtrending. No osmolar gap. He denies daily alcohol use or alcohol dependence. Will monitor for signs of withdrawal. Thiamine/folic acid daily. Poison control was notified by ED and will follow. PSYCH: [place] act Placed under [place] act by law enforcement. Psychiatry consult. RESP: Asthma Tobacco abuse Tobacco cessation counseling discussed Albuterol every 2 hours as needed for wheezing CV: EKG - QRS 116, normal QTc. GI: Vomiting Hx diverticulitis Zofran as needed for nausea FEN/RENAL: Monitor intake and output. Monitor electrolytes and replace as indicated. Check phosphorus level now. F/u BMP to monitor for worsening acidosis as unknown co-ingestion. ID: Monitor for signs and symptoms of infection. HEME: No acute hematologic issues ENDO: Mild stress hyperglycemia. Follow-up glucose on repeat BMP. Initiate insulin if needed TSH WNL PROPH: SCDs/heparin 5000 units subcu every 12 hours for DVT prophylaxis. Protonix 40 mg IV daily for stress ulcer prophylaxis. ACCESS: Peripheral IV providing adequate access. Full code Level 3 H&P
[2018-01-22 02:25] LABS: Acetaminophen 146.9 mcg/mL (10.0-30.0); Phosphorus 3.6 mg/dL (2.5-4.9)
[2018-01-22 02:37] LABS: Calcium 7.7 mg/dL (8.5-10.1); Carbon Dioxide 22.4 meq/L (21.0-32.0); Potassium 3.7 meq/L (3.5-5.1)
[2018-01-22 02:53] LABS: ABG PCO2 37 mmHg (38-42); ABG PO2 107 mmHg (61-120)
[2018-01-22] MEDS: Heparin - SQ 10,000 UNITS/ML Vial SQ SCH ×2 (03:24→13:49)
[2018-01-22] MEDS: Chlorhexidine Gluconate 2% 1 Pack (2 Cloths) TOPICAL SCH (03:25)
[2018-01-22] MEDS ORDERED: Chlorhexidine Gluconate 2% 1 Pack (2 Cloths) TOPICAL PRN (04:00)
[2018-01-22] MEDS: Pantoprazole Inj 40 MG Vial IV.PUSH SCH (08:45)
[2018-01-22] MEDS: Senna/Docusate Sodium 8.6/50 MG Tablet PO SCH ×2 (09:54→20:16)
[2018-01-22] MEDS: Folic Acid 1 MG Tablet PO SCH (09:54)
--- NOTE | 2018-01-22 14:10 | P.CONGI ---
History of Present Illness Consult date: 01/22/18 Consult reason: Hematemesis Chief complaint: Tylenol toxicity, intentional overdose History of Present Illness: This is a well-nourished 42-year-old male who came to the hospital on 2017 [place] act, post intentional Tylenol overdose. Patient is currently being monitored in the intensive care setting and initially had nausea and vomiting with some bright red streaks of blood noted. It was also noted per the record that patient had drank a substantial amount of alcohol. Currently patient does have a decreased appetite, some nausea but no vomiting patient denies any abdominal pain no history or current diarrhea or constipation states last bowel movement brown and formed 24 hours ago. Patient does note a history of some dyspepsia onset greater than one year and notices symptoms daily usually worse after eating. Patient's had no previous EGD or colonoscopy performed and no family history of colon cancer. Patient does note history of diverticulitis greater than 3 years ago and noted an 8-day hospital stay during that time. Labs reviewed with current hemoglobin 14, PT/INR 1.1, bilirubin and LFTs are normal Tylenol level last seen was 146.9. Patient is currently undergoing Tylenol detox in the intensive care setting. He is alert and oriented and answering simple questions. Gastroenterology was consulted to assist with possible GI bleeding, red tinged blood seen with vomiting, and according to the record some bloody stools and abdominal pain times 1 month before current admission. Review of Systems All other systems reviewed negative except as stated in HPI PMFSH - History History Provided By: Patient - Medical History Medical History: Medical History (Last Updated 01/22/18 @ 02:40 by Elsi Rawls MD) Asthma Diverticulitis - Surgical History Surgical History: Surgical History (Last Reviewed 01/21/18 @ 19:09 by Sade Vasquez) No history of previous surgery - Family History Family History: Family History (Last Updated 01/22/18 @ 02:40 by Elsi Rawls MD) Father Asthma Sister Asthma - Tobacco History Second Hand Smoke Exposure: No Tobacco Use In Past 30 Days: Yes Smoking Status: Current every day smoker Tobacco Type: Cigarettes Packs Per Day: 2 - Alcohol History How Often Do You Have a Drink Containing Alcohol: 2 to 4 times a month - Substance Use History Substance History: Active Abuse - Substance Use Type Alcohol Status: Active - Travel History Recent Travel in the [place] Within the Last 8 Weeks: No Recent Travel Out of the Country Within the Last 8 Weeks: No - Immunization History Tetanus Immunization: >5 Years Medications and Allergies Active Medications: Active Medications Al Hydroxide/Mg Hydroxide (Milk Of Magnesia Liq) 30 ml PO Q12H PRN PRN Reason: Mild Constipation Albuterol (Albuterol Neb (Prn)) 2.5 mg NEB Q2HR NEB PRN PRN Reason: SHORTNESS OF BREATH/WHEEZING Bisacodyl (Dulcolax Supp) 10 mg RECTAL DAILY PRN PRN Reason: SEVERE CONSITIPATION Chlorhexidine Gluconate (Chlorhexidine 2% Cloth) 3 pack TOPICAL DAILY@0400 [facility] Stop: 01/27/18 03:59 Last Admin: 01/22/18 03:25 Dose: 3 pack Chlorhexidine Gluconate (Chlorhexidine 2% Cloth) 3 pack TOPICAL DAILY@0400 PRN PRN Reason: Extra cloth needed Stop: 01/27/18 03:59 Folic Acid (Folic Acid) 1 mg PO DAILY [facility] Last Admin: 01/22/18 09:54 Dose: Not Given Heparin Sodium (Porcine) (Heparin Inj) 5,000 units SQ Q12H [facility] Last Admin: 01/22/18 13:49 Dose: Not Given Lactated Ringer's (Lr 1000 Ml Inj) 1,000 mls @ 100 mls/hr IV.CONT .Q10H [facility] Last Admin: 01/22/18 03:24 Dose: 100 mls/hr Lactulose (Lactulose Liq) 30 ml PO DAILY PRN PRN Reason: SEVERE CONSITIPATION Ondansetron HCl (Zofran Inj) 4 mg IV.PUSH Q6H PRN PRN Reason: NAUSEA OR VOMITING Last Admin: 01/22/18 03:24 Dose: 4 mg Pantoprazole Sodium (Protonix Inj) 40 mg IV.PUSH DAILY [facility] Last Admin: 01/22/18 08:45 Dose: 40 mg Senna/Docusate Sodium (Kathrine-Colace) 1 tab PO BID [facility] Last Admin: 01/22/18 09:54 Dose: Not Given Sennosides (Senokot) 17.2 mg PO Q12H PRN PRN Reason: Moderate Constipation Sodium Chloride (Ns Flush) 2 ml IV.FLUSH BID [facility] Last Admin: 01/22/18 09:54 Dose: 2 ml Sodium Chloride (Ns Flush) 2 ml IV.FLUSH PRN PRN PRN Reason: FLUSH AFTER USING IV ACCESS Thiamine HCl (Vitamin B1) 100 mg PO DAILY [facility] Last Admin: 01/22/18 09:55 Dose: Not Given Allergies Allergy/AdvReac Type Severity Reaction Status Date / Time hazelnut Allergy Intermediate SOB/ASTHMA Verified 01/21/18 18:52 ATTACK Home Medications Medication Instructions Recorded Confirmed Type No Known Home Medications 01/21/18 01/21/18 History Exam Vital signs: Vital Signs 01/21/18 18:36 01/21/18 20:40 01/22/18 00:54 Temperature 97.9 F Pulse Rate 87 72 Respiratory Rate 16 Blood Pressure 115/83 116/74 Pulse Oximetry 98 98 96 01/22/18 00:55 01/22/18 02:04 01/22/18 03:00 Temperature Pulse Rate 68 65 Respiratory Rate 18 18 Blood Pressure 162/88 H 172/92 H 180/106 H Pulse Oximetry 97 01/22/18 03:06 01/22/18 03:07 01/22/18 03:50 Temperature Pulse Rate 85 93 H 62 Respiratory Rate 30 H 31 H 17 Blood Pressure 180/106 H 167/96 H Pulse Oximetry 97 01/22/18 04:00 01/22/18 05:00 01/22/18 06:00 Temperature 98.8 F Pulse Rate 63 63 81 Respiratory Rate 17 20 30 H Blood Pressure 149/88 H 179/95 H 183/92 H Pulse Oximetry 97 99 100 01/22/18 06:03 01/22/18 07:00 01/22/18 08:00 Temperature 98.4 F Pulse Rate 57 L 61 71 Respiratory Rate 17 16 19 Blood Pressure 183/92 H Pulse Oximetry 99 97 01/22/18 09:00 01/22/18 10:00 01/22/18 11:00 Temperature Pulse Rate 60 81 76 Respiratory Rate 16 18 25 H Blood Pressure Pulse Oximetry 01/22/18 12:00 01/22/18 12:01 01/22/18 13:00 Temperature 98.4 F Pulse Rate 73 71 61 Respiratory Rate 31 H 29 H 16 Blood Pressure 185/104 H 169/95 H Pulse Oximetry Intake & Output 01/21/18 01/22/18 01/22/18 18:59 06:59 18:59 Intake Total 1795.25 / 1795.25 Output Total 400 / 400 Balance 1395.25 / 1395.25 Weight 95.451 kg 92.5 kg Intake: IV 1795.25 / 1795.25 Acetadote Inj 14,300 MG In D5W 271.5 / 271.5 Inj 200 ML @ 271.5 mls/hr IV. SIG ONCE ONE Rx#:[id number] Acetadote Inj 4,750 MG In D5W 523.75 / 523.75 Inj 500 ML @ 130.938 mls/hr IV. SIG ONCE ONE Rx#:[id number] NS Inj 1,000 ML @ Wide Open IV. 1000 / 1000 SIG BOLUS ONE Rx#:[id number] Oral 0 / 0 Output: Urine 300 / 300 Emesis 100 / 100 Other: # Bowel Movements 0 Weight On Admission 92.1 kg - Constitutional mild distress, disheveled, cooperative - Routine HEENT Exam Head: Present: normocephalic ENT: Present: mucous membranes moist - Routine Respiratory Exam Present: accessory muscle use (No shortness of breath at rest) - Routine Cardiovascular Exam Present: S1, S2 - Routine Abdominal Exam Present: soft, normoactive bowel sounds (No obvious tenderness to light palpation) - Routine Skin Exam Present: intact - Routine Neurological Exam Present: alert (Eyes closed but answers simple questions and arouses easily) Results - Labs CBC & Chem 7: 01/22/18 12:55 01/22/18 02:00 Labs: Laboratory Results - last 24 hr 01/21/18 01/21/18 01/21/18 20:12 20:12 20:12 WBC 10.4 RBC 4.85 Hgb 14.0 Hct 42.5 MCV 87.7 MCH 28.8 MCHC 32.9 RDW 13.9 Plt Count 263 MPV 8.5 Neut % (Auto) 82.3 H Lymph % (Auto) 12.4 Hartley % (Auto) 4.8 Eos % (Auto) 0.1 Baso % (Auto) 0.4 Neut # (Auto) 8.6 H Lymph # (Auto) 1.3 Hartley # (Auto) 0.5 Eos # (Auto) 0.0 Baso # (Auto) 0.0 WBC Differential . Differential Comment Auto diff final PT INR APTT Fibrinogen Puncture Site Patient Temperature O2 Saturation ABG pH ABG pCO2 ABG pO2 ABG HCO3 ABG O2 Content ABG Base Excess ABG Methemoglobin Juan Francisco Test Hemoglobin Carboxyhemoglobin O2 Delivery Device Inspired O2 Critical Value Sodium 141 Potassium 3.7 Chloride 110 H Carbon Dioxide 18.3 L Anion Gap 13 BUN 11 Creatinine 1.17 Estimated GFR 69 L POC Glucose Random Glucose 116 H Osmolality Calcium 8.6 Phosphorus Magnesium 2.0 Total Bilirubin 0.6 AST 14 L ALT 26 Alkaline Phosphatase 71 Total Protein 7.6 Albumin 4.1 TSH 1.090 Nasal Screen MRSA (PCR) Salicylates Urine Opiates Screen Acetaminophen 232.9 H* Ur Barbiturates Screen Ur Amphetamines Screen U Benzodiazepines Scrn Urine Cocaine Screen U Cannabinoids Screen Serum Alcohol 42 H Blood Type Blood Type Recheck Antibody Screen 01/21/18 01/22/18 01/22/18 20:12 00:20 00:45 WBC RBC Hgb Hct MCV MCH MCHC RDW Plt Count MPV Neut % (Auto) Lymph % (Auto) Hartley % (Auto) Eos % (Auto) Baso % (Auto) Neut # (Auto) Lymph # (Auto) Hartley # (Auto) Eos # (Auto) Baso # (Auto) WBC Differential Differential Comment PT INR APTT Fibrinogen Puncture Site Patient Temperature O2 Saturation ABG pH ABG pCO2 ABG pO2 ABG HCO3 ABG O2 Content ABG Base Excess ABG Methemoglobin Juan Francisco Test Hemoglobin Carboxyhemoglobin O2 Delivery Device Inspired O2 Critical Value Sodium Potassium Chloride Carbon Dioxide Anion Gap BUN Creatinine Estimated GFR POC Glucose Random Glucose Osmolality 301 H Calcium Phosphorus Magnesium Total Bilirubin AST ALT Alkaline Phosphatase Total Protein Albumin TSH Nasal Screen MRSA (PCR) Salicylates 9.9 Urine Opiates Screen Neg Acetaminophen Ur Barbiturates Screen Neg Ur Amphetamines Screen Neg U Benzodiazepines Scrn Neg Urine Cocaine Screen Neg U Cannabinoids Screen Pos H Serum Alcohol Blood Type Blood Type Recheck Antibody Screen 01/22/18 01/22/18 01/22/18 00:45 00:45 00:52 WBC RBC Hgb Hct MCV MCH MCHC RDW Plt Count MPV Neut % (Auto) Lymph % (Auto) Hartley % (Auto) Eos % (Auto) Baso % (Auto) Neut # (Auto) Lymph # (Auto) Hartley # (Auto) Eos # (Auto) Baso # (Auto) WBC Differential Differential Comment PT 11.6 INR 1.1 APTT 23.2 L Fibrinogen Puncture Site Patient Temperature O2 Saturation ABG pH ABG pCO2 ABG pO2 ABG HCO3 ABG O2 Content ABG Base Excess ABG Methemoglobin Juan Francisco Test Hemoglobin Carboxyhemoglobin O2 Delivery Device Inspired O2 Critical Value Sodium Potassium Chloride Carbon Dioxide Anion Gap BUN Creatinine Estimated GFR POC Glucose 150 H Random Glucose Osmolality Calcium Phosphorus Magnesium 2.0 Total Bilirubin AST ALT Alkaline Phosphatase Total Protein Albumin TSH Nasal Screen MRSA (PCR) Salicylates Urine Opiates Screen Acetaminophen Ur Barbiturates Screen Ur Amphetamines Screen U Benzodiazepines Scrn Urine Cocaine Screen U Cannabinoids Screen Serum Alcohol Blood Type Blood Type Recheck Antibody Screen 01/22/18 01/22/18 01/22/18 02:00 02:00 02:45 WBC RBC Hgb Hct MCV MCH MCHC RDW Plt Count MPV Neut % (Auto) Lymph % (Auto) Hartley % (Auto) Eos % (Auto) Baso % (Auto) Neut # (Auto) Lymph # (Auto) Hartley # (Auto) Eos # (Auto) Baso # (Auto) WBC Differential Differential Comment PT INR APTT Fibrinogen Puncture Site Left radial Patient Temperature 98.6 O2 Saturation 95 ABG pH 7.41 ABG pCO2 37 L ABG pO2 107 ABG HCO3 23 ABG O2 Content 17.5 ABG Base Excess -1.0 ABG Methemoglobin 1.0 Juan Francisco Test Present Hemoglobin 13.0 Carboxyhemoglobin 1.9 O2 Delivery Device Room air Inspired O2 21 Critical Value No Sodium 145 Potassium 3.7 Chloride 108 H Carbon Dioxide 22.4 Anion Gap 15 BUN 11 Creatinine 1.07 Estimated GFR 76 L POC Glucose Random Glucose 173 H Osmolality Calcium 7.7 L D Phosphorus 3.6 Magnesium Total Bilirubin AST ALT Alkaline Phosphatase Total Protein Albumin TSH Nasal Screen MRSA (PCR) Salicylates Urine Opiates Screen Acetaminophen 146.9 H Ur Barbiturates Screen Ur Amphetamines Screen U Benzodiazepines Scrn Urine Cocaine Screen U Cannabinoids Screen Serum Alcohol Blood Type Blood Type Recheck Antibody Screen 01/22/18 01/22/18 01/22/18 03:15 03:50 03:50 WBC RBC Hgb 13.4 Hct MCV MCH MCHC RDW Plt Count MPV Neut % (Auto) Lymph % (Auto) Hartley % (Auto) Eos % (Auto) Baso % (Auto) Neut # (Auto) Lymph # (Auto) Hartley # (Auto) Eos # (Auto) Baso # (Auto) WBC Differential Differential Comment PT INR APTT Fibrinogen Puncture Site Patient Temperature O2 Saturation ABG pH ABG pCO2 ABG pO2 ABG HCO3 ABG O2 Content ABG Base Excess ABG Methemoglobin Juan Francisco Test Hemoglobin Carboxyhemoglobin O2 Delivery Device Inspired O2 Critical Value Sodium Potassium Chloride Carbon Dioxide Anion Gap BUN Creatinine Estimated GFR POC Glucose Random Glucose Osmolality Calcium Phosphorus Magnesium Total Bilirubin AST ALT Alkaline Phosphatase Total Protein Albumin TSH Nasal Screen MRSA (PCR) Not detected Salicylates Urine Opiates Screen Acetaminophen Ur Barbiturates Screen Ur Amphetamines Screen U Benzodiazepines Scrn Urine Cocaine Screen U Cannabinoids Screen Serum Alcohol Blood Type A Positive Blood Type Recheck Required Antibody Screen Negative 01/22/18 01/22/18 03:50 12:55 WBC RBC Hgb 12.8 L Hct MCV MCH MCHC RDW Plt Count MPV Neut % (Auto) Lymph % (Auto) Hartley % (Auto) Eos % (Auto) Baso % (Auto) Neut # (Auto) Lymph # (Auto) Hartley # (Auto) Eos # (Auto) Baso # (Auto) WBC Differential Differential Comment PT INR APTT Fibrinogen 274 Puncture Site Patient Temperature O2 Saturation ABG pH ABG pCO2 ABG pO2 ABG HCO3 ABG O2 Content ABG Base Excess ABG Methemoglobin Juan Francisco Test Hemoglobin Carboxyhemoglobin O2 Delivery Device Inspired O2 Critical Value Sodium Potassium Chloride Carbon Dioxide Anion Gap BUN Creatinine Estimated GFR POC Glucose Random Glucose Osmolality Calcium Phosphorus Magnesium Total Bilirubin AST ALT Alkaline Phosphatase Total Protein Albumin TSH Nasal Screen MRSA (PCR) Salicylates Urine Opiates Screen Acetaminophen Ur Barbiturates Screen Ur Amphetamines Screen U Benzodiazepines Scrn Urine Cocaine Screen U Cannabinoids Screen Serum Alcohol Blood Type Blood Type Recheck Antibody Screen Assessment and Plan - Plan 42-year-old male who came to the hospital on 01/21/2018 [place] act, post intentional Tylenol overdose. Patient is currently being monitored in the intensive care setting and initially had nausea and vomiting with some bright red streaks of blood noted. It was also noted per the record that patient had drank a substantial amount of alcohol. Currently patient does have a decreased appetite, some nausea but no vomiting patient denies any abdominal pain no history or current diarrhea or constipation states last bowel movement brown and formed 24 hours ago. Patient does note a history of some dyspepsia onset greater than one year and notices symptoms daily usually worse after eating. Patient's had no previous EGD, and no family history of colon cancer. Patient does note history of diverticulitis greater than 3 years ago and noted an 8-day hospital stay during that time. Labs reviewed with current hemoglobin 14, PT/ INR 1.1, bilirubin and LFTs are normal Tylenol level last seen was 146.9. Patient is currently undergoing Tylenol detox in the intensive care setting. He is alert and oriented and answering simple questions. Gastroenterology was consulted to assist with possible GI bleeding, red tinged blood seen with vomiting, and according to the record some bloody stools and abdominal pain times 1 month before current admission. Hematemesis, bright red blood tinged vomitus, possibly related to gastritis, symptoms could be stress related Dyspepsia symptoms of GERD almost daily greater than 1 year, takes no medication , states Tums gives him nauseated feeling. Symptoms could be stress related Abdominal pain and bloody stools times 1 month per the record, history of diverticulitis, but denies any previous EGD, colonoscopy approximately 3 years ago if not longer, no family history of colon cancer. No CT yet for comparison and no IV antibiotics, possible diverticulitis needs to be ruled out. Symptoms could be stress related Intentional Tylenol overdose, [place] act, according to the record over a breakup with girlfriend, currently in the intensive care setting but plan is to move to private room today Labs reviewed hemoglobin 14, INR 1.1, bilirubin and LFTs normal, last Tylenol level once 46.9, EtOH 42 on admission Plan Diet as tolerated Consent for EGD in the morning, patient is alert and oriented, stable vital signs and is supposed to be moving to a private room today Monitor labs with special attention to any obvious bleeding Start Flagyl 500 mg every 8 IV Start Cipro 400 mg IV every 12 CT scan of abdomen and pelvis with contrast, need to evaluate for possible diverticulitis, if patient has diverticulitis will need colonoscopy outpatient in approximately 6- 8 weeks Supportive care Further recommendations to follow Patient was seen per myself and Dr. Boykin, note was written on his behalf
[2018-01-22] MEDS: Ciprofloxacin 400 MG/200 ML 400 MG/200 ML PIGGYBACK IV.SIG SCH (15:05)
[2018-01-22 17:08] LABS: Alanine Aminotransferase 27 U/L (12-78); Albumin 3.2 g/dL (3.4-5.0); Anion Gap 9 meq/L (5-15); Aspartate Aminotransferase 13 U/L (15-37); Blood Urea Nitrogen 9 mg/dL (7-18); Calcium 8.3 mg/dL (8.5-10.1); Carbon Dioxide 25.9 meq/L (21.0-32.0); Chloride 109 meq/L (98-107); Glomerular Filtration Rate 61 mL/min (>89); Glucose,Random 91 mg/dL (74-106); Potassium 3.1 meq/L (3.5-5.1); Sodium 144 meq/L (136-145)
[2018-01-22 17:09] LABS: Alkaline Phosphatase 60 U/L (45-117); Total Protein 6.4 g/dL (6.4-8.2)
--- NOTE | 2018-01-22 18:03 | P.CONPSY ---
Provisional Diagnosis Admission Date: January 22, 2018 01:05 History of Present Illness Service: psychiatry Consult date: 01/22/18 Primary Care Provider: No Primary Care Physician Chief Complaint: Tylenol ingestion History of Present Illness: This is a request for a psychiatric consult. Documentation was reviewed, case was discussed with nursing and patient was evaluated. Patient is a 42-year-old male with with a history of a previous Mcfarlane act. Patient was initially brought to the ER after an intentional overdose on Tylenol combination with "a bottle of Captjeaneth Bruno's." Patient is pleasant during the interview but he is evasive, guarded, and is minimizing the severity and likely the circumstances surrounding this event. Per record patient was taking pictures of himself taking Tylenol which today he denies. Patient claims that the last thing he remembers was buying a bottle of liquor at the liquor store, beginning to drink and then waking up in the hospital. Patient admits to recent life stressors but denies yesterday or the recent past has been anything outside of the norm. Stressors include his ex- moving to [place] and taking 2 of his kids. Patient denies any recent depressive symptoms, manic symptoms, or psychosis. Patient claims this was an impulsive act and he will had no ideation or planning. Patient denies being anxious but later admits to smoking marijuana every night for sleep and anxiety. Denies panic attacks. He denies regular use of alcohol and says his last drink was 1 he had his previous Mcfarlane act admission here 2 years ago. Patient says that today he no longer has suicidal homicidal ID. He says that he would never hurt himself because of his "kids." Past psych: Per record, patient was admitted 2 years ago with the details noted below. Today, patient is persistent saying that he never had suicidal thoughts and this was all a misunderstanding. However, he admits that the stressor was his ex- cheating on him. 40-year-old white male presents to emergency department under Mcfarlane act by PD. According to the Mcfarlane act the patient had made suicidal statements. He has stated that he was given a wrap his car around a tree. The patient states that he is upset with his fiance. He states that he caught her cheating on him. He is in the process of moving out now. He denies any toxic ingestions. He denies any drugs. Positive tobacco. He does admit to alcohol. He denies making any statements of self-harm. He denies any suicidal ideation. No homicidal ideation. Patient denies ever following up with outpatient psychiatry. Denies any history of psychotropic medications. Denies any other suicide attempts or suicidal thoughts. Denies a history of cutting Past medical: See chart Past Famhx: Denies Past Social: Patient has a total of 5 kids to of which she continues to pay for child support. 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 Denies any substance use besides nightly marijuana. He is in a relationship right now that is "on and off." He says he has a few close friends. He has no access to guns PMFSH - History History Provided By: Patient - Medical History Medical History: Medical History (Last Reviewed 01/22/18 @ 18:00 by Dick Hernandez DO) Asthma Diverticulitis - Surgical History Surgical History: Surgical History (Last Reviewed 01/21/18 @ 19:09 by Sade Vasquez) No history of previous surgery - Family History Family History: Family History (Last Updated 01/22/18 @ 02:40 by Elsi Rawls MD) Father Asthma Sister Asthma - Tobacco History Second Hand Smoke Exposure: No Tobacco Use In Past 30 Days: Yes Smoking Status: Current every day smoker Tobacco Type: Cigarettes Packs Per Day: 2 - Alcohol History How Often Do You Have a Drink Containing Alcohol: 2 to 4 times a month - Substance Use History Substance History: Active Abuse - Substance Use Type Alcohol Status: Active - Travel History Recent Travel in the [facility] Within the Last 8 Weeks: No Recent Travel Out of the Country Within the Last 8 Weeks: No - Immunization History Tetanus Immunization: >5 Years Medications and Allergies Active Medications: Active Medications Al Hydroxide/Mg Hydroxide (Milk Of Naseem Lawton) 30 ml PO Q12H PRN PRN Reason: Mild Constipation Albuterol (Albuterol Neb (Prn)) 2.5 mg NEB Q2HR NEB PRN PRN Reason: SHORTNESS OF BREATH/WHEEZING Bisacodyl (Dulcolax Supp) 10 mg RECTAL DAILY PRN PRN Reason: SEVERE CONSITIPATION Chlorhexidine Gluconate (Chlorhexidine 2% Cloth) 3 pack TOPICAL DAILY@0400 [facility] Stop: 01/27/18 03:59 Last Admin: 01/22/18 03:25 Dose: 3 pack Chlorhexidine Gluconate (Chlorhexidine 2% Cloth) 3 pack TOPICAL DAILY@0400 PRN PRN Reason: Extra cloth needed Stop: 01/27/18 03:59 Folic Acid (Folic Acid) 1 mg PO DAILY [facility] Last Admin: 01/22/18 09:54 Dose: Not Given Heparin Sodium (Porcine) (Heparin Inj) 5,000 units SQ Q12H [facility] Last Admin: 01/22/18 13:49 Dose: Not Given Lactated Ringer's (Lr 1000 Ml Inj) 1,000 mls @ 100 mls/hr IV.CONT .Q10H [facility] Last Admin: 01/22/18 14:42 Dose: 100 mls/hr Metronidazole/Sodium Chloride (Flagyl 500 Mg Inj) 100 mls @ 100 mls/hr IV.SIG Q8H [facility] Last Admin: 01/22/18 16:22 Dose: 100 mls/hr Ciprofloxacin/Dextrose (Cipro 400 Mg/200 Ml Inj) 400 mg in 200 mls @ 200 mls/ hr IV.SIG Q12H [facility] Last Infusion: 01/22/18 16:25 Dose: Infused Lactulose (Lactulose Liq) 30 ml PO DAILY PRN PRN Reason: SEVERE CONSITIPATION Ondansetron HCl (Zofran Inj) 4 mg IV.PUSH Q6H PRN PRN Reason: NAUSEA OR VOMITING Last Admin: 01/22/18 03:24 Dose: 4 mg Pantoprazole Sodium (Protonix Inj) 40 mg IV.PUSH DAILY [facility] Last Admin: 01/22/18 08:45 Dose: 40 mg Senna/Docusate Sodium (Kathrine-Colace) 1 tab PO BID [facility] Last Admin: 01/22/18 09:54 Dose: Not Given Sennosides (Senokot) 17.2 mg PO Q12H PRN PRN Reason: Moderate Constipation Sodium Chloride (Ns Flush) 2 ml IV.FLUSH BID [facility] Last Admin: 01/22/18 09:54 Dose: 2 ml Sodium Chloride (Ns Flush) 2 ml IV.FLUSH PRN PRN PRN Reason: FLUSH AFTER USING IV ACCESS Thiamine HCl (Vitamin B1) 100 mg PO DAILY [facility] Last Admin: 01/22/18 09:55 Dose: Not Given Allergies Allergy/AdvReac Type Severity Reaction Status Date / Time hazelnut Allergy Intermediate SOB/ASTHMA Verified 01/21/18 18:52 ATTACK Home Medications Medication Instructions Recorded Confirmed Type No Known Home Medications 01/21/18 01/21/18 History Exam Vital signs: Vital Signs 01/21/18 18:36 01/21/18 20:40 01/22/18 00:54 Temperature 97.9 F Pulse Rate 87 72 Respiratory Rate 16 Blood Pressure 115/83 116/74 Pulse Oximetry 98 98 96 01/22/18 00:55 01/22/18 02:04 01/22/18 03:00 Temperature Pulse Rate 68 65 Respiratory Rate 18 18 Blood Pressure 162/88 H 172/92 H 180/106 H Pulse Oximetry 97 01/22/18 03:06 01/22/18 03:07 01/22/18 03:50 Temperature Pulse Rate 85 93 H 62 Respiratory Rate 30 H 31 H 17 Blood Pressure 180/106 H 167/96 H Pulse Oximetry 97 01/22/18 04:00 01/22/18 05:00 01/22/18 06:00 Temperature 98.8 F Pulse Rate 63 63 81 Respiratory Rate 17 20 30 H Blood Pressure 149/88 H 179/95 H 183/92 H Pulse Oximetry 97 99 100 01/22/18 06:03 01/22/18 07:00 01/22/18 08:00 Temperature 98.4 F Pulse Rate 57 L 61 71 Respiratory Rate 17 16 19 Blood Pressure 183/92 H Pulse Oximetry 99 97 01/22/18 09:00 01/22/18 10:00 01/22/18 11:00 Temperature Pulse Rate 60 81 76 Respiratory Rate 16 18 25 H Blood Pressure Pulse Oximetry 01/22/18 12:00 01/22/18 12:01 01/22/18 13:00 Temperature 98.4 F Pulse Rate 73 71 61 Respiratory Rate 31 H 29 H 16 Blood Pressure 185/104 H 169/95 H Pulse Oximetry Intake & Output 01/21/18 01/22/18 01/22/18 18:59 06:59 18:59 Intake Total 1795.25 / 1795.25 1200 / 1200 Output Total 400 / 400 Balance 1395.25 / 1395.25 1200 / 1200 Weight 95.451 kg 92.5 kg Intake: IV 1795.25 / 1795.25 1200 / 1200 LR 1000 mL Inj 1,000 ML @ 100 1000 / 1000 mls/hr IV.CONT .Q10H [facility] Rx#: [id number] Acetadote Inj 14,300 MG In D5W 271.5 / 271.5 Inj 200 ML @ 271.5 mls/hr IV. SIG ONCE ONE Rx#:[id number] Acetadote Inj 4,750 MG In D5W 523.75 / 523.75 Inj 500 ML @ 130.938 mls/hr IV. SIG ONCE ONE Rx#:[id number] Cipro 400 MG/200 ML Inj 400 mg 200 / 200 In 200 ml @ 200 mls/hr IV.SIG Q12H [facility] Rx#:[id number] NS Inj 1,000 ML @ Wide Open IV. 1000 / 1000 SIG BOLUS ONE Rx#:[id number] Oral 0 / 0 Output: Urine 300 / 300 Emesis 100 / 100 Other: Date of Last Bowel Movement 01/21/18 # Bowel Movements 0 Weight On Admission 92.1 kg Mental Status Examination Appearance: Appropriate Consciousness: Alert Orientation: x4 Motor Activity: Normal gait Speech: Unremarkable Language: Adequate Fund of Knowledge: Adequate Attention and Concentration: Adequate Memory: Impaired Mood: Oppositional, Irritable Affect: Blunt Thought Process & Associations: Intact Thought Content: Appropriate Hallucination Type: None Delusion Type: None Suicidal Ideation: No Suicidal Plan: No Suicidal Intention: No Homicidal Ideation: No Homicidal Plan: No Homicidal Intention: No Insight: Poor Judgment: Poor Assessment and Plan - Assessment (1) Adjustment disorder Code(s): F43.20 - Adjustment disorder, unspecified Status: Acute - Plan Plan: Patient is perseverative on discharge and is likely not being completely honest with the events of this attempt. He is evasive and minimizes the situation as noted in the chart. He gives contradictory information to documented history of his previous admission here. Given the severity of the incidents, his other Mcfarlane act for suicidal thoughts, and his evasive behavior, patient would benefit from admission to the psychiatric unit for further evaluation and obtaining of collateral information. Justification for Continued Inpatient Stay: Patient would decompensate in a less restrictive setting
--- NOTE | 2018-01-22 21:19 | CT ---
EXAM DATE: 01/22/2018 8:44 PM EDT AGE/SEX: 42 years / Male INDICATIONS: Diffuse abdomen pain today. CLINICAL DATA: This is the patient's initial encounter. Patient reports that signs and symptoms have been present for 1 day and indicates a pain score of 7/10. MEDICAL/SURGICAL HISTORY: Diverticulitis. None. ORAL CONTRAST: No oral contrast ingested. RADIATION DOSE: 6.91 CTDI (mGy) COMPARISON: No prior exams available for comparison. TECHNIQUE: Multiple contiguous axial images were obtained through the abdomen and pelvis following b olus infusion of 97 ml Omnipaque 350 (iohexol) nonionic water-soluble contrast as a single exam dos e. No oral contrast ingested. Using automated exposure control and adjustment of the mA and/or kV ac cording to patient size, radiation dose was kept as low as reasonably achievable to obtain optimal di agnostic quality images. DICOM format image data is available electronically for review and comparis on. FINDINGS: Lung bases are clear. No acute findings in the liver, spleen, adrenals, kidneys or pancreas. No free fluid. No bowel obstruction. No adenopathy. Colonic diverticula noted without evidence for diverticul itis. Appendix is normal. CONCLUSION: 1. No acute findings within the abdomen and pelvis. Scattered colonic diverticula. Electronically signed by: Jose Martin Washburn MD 01/22/2018 9:17 PM EDT
[2018-01-22 21:20] LABS: INR 1.3 Ratio; Prothrombin Time 12.7 sec (9.8-11.6)
[2018-01-22 21:32] LABS: Albumin 3.1 g/dL (3.4-5.0); Anion Gap 8 meq/L (5-15); Aspartate Aminotransferase 11 U/L (15-37); Blood Urea Nitrogen 9 mg/dL (7-18); Calcium 8.4 mg/dL (8.5-10.1); Chloride 106 meq/L (98-107); Glomerular Filtration Rate 63 mL/min (>89); Glucose,Random 81 mg/dL (74-106); Potassium 3.3 meq/L (3.5-5.1); Sodium 140 meq/L (136-145)
[2018-01-22 21:33] LABS: Alanine Aminotransferase 26 U/L (12-78)
[2018-01-22 21:35] LABS: Acetaminophen 5.3 mcg/mL (10.0-30.0); Alkaline Phosphatase 58 U/L (45-117); Total Protein 6.4 g/dL (6.4-8.2)
--- NOTE | 2018-01-22 23:50 | ECG ---
Date Performed: 01/22/2018 Time Performed: 12:07:30 PTAGE: 42 years EKG: SINUS BRADYCARDIA MILD INTRAVENTRICULAR CONDUCTION DELAY BORDERLINE ECG PREVIOUS TRACING : 01/22/2018 05.59 Since the previous tracing, no significant change noted DOCTOR: Dale Hope Interpretating Date/Time 01/22/2018 23:49:26
--- NOTE | 2018-01-23 00:03 | ECG ---
Date Performed: 01/22/2018 Time Performed: 05:59:44 PTAGE: 42 years EKG: Sinus bradycardia Normal ECG except for rate NO PREVIOUS TRACING DOCTOR: Dale Hope Interpretating Date/Time 01/23/2018 00:01:53
--- NOTE | 2018-01-23 00:07 | ECG ---
Date Performed: 01/22/2018 Time Performed: 01:27:44 PTAGE: 42 years EKG: SINUS BRADYCARDIA NO PREVIOUS TRACING DOCTOR: Dale Hope Interpretating Date/Time 01/23/2018 00:06:43
[2018-01-23] MEDS: Heparin - SQ 10,000 UNITS/ML Vial SQ SCH ×2 (02:59→13:57)
[2018-01-23] MEDS: Ciprofloxacin 400 MG/200 ML 400 MG/200 ML PIGGYBACK IV.SIG SCH (03:14)
[2018-01-23] MEDS: Chlorhexidine Gluconate 2% 1 Pack (2 Cloths) TOPICAL SCH (03:35)
[2018-01-23 04:15] LABS: Baso # (Auto) 0.1 th/mm3 (0.0-0.2); Baso % (Auto) 0.6 % (0.0-2.0); Eos # (Auto) 0.1 th/mm3 (0.0-0.4); Eos % (Auto) 0.9 % (0.0-4.0); Hemoglobin 12.8 gm/dL (13.0-17.0); Lymph # (Auto) 2.5 th/mm3 (1.0-4.8); Lymph % (Auto) 20.8 % (9.0-44.0); Mean Corpuscular HGB Conc 33.7 % (32.0-36.0); Mean Corpuscular Hemoglobin 29.1 pg (27.0-34.0); Mean Corpuscular Volume 86.4 fL (80.0-100.0); Mean Platelet Volume 8.6 fL (7.0-11.0); Mono # (Auto) 0.7 th/mm3 (0.0-0.9); Mono % (Auto) 5.7 % (0.0-8.0); Neut # (Auto) 8.7 th/mm3 (1.8-7.7); Platelet Count 245 th/mm3 (150-450); Red Blood Count 4.39 mil/mm3 (4.50-5.90)
[2018-01-23 04:21] LABS: INR 1.2 Ratio; Prothrombin Time 12.6 sec (9.8-11.6)
[2018-01-23 04:38] LABS: Albumin 3.1 g/dL (3.4-5.0); Anion Gap 7 meq/L (5-15); Aspartate Aminotransferase 10 U/L (15-37); Blood Urea Nitrogen 8 mg/dL (7-18); Calcium 8.5 mg/dL (8.5-10.1); Chloride 107 meq/L (98-107); Glomerular Filtration Rate 81 mL/min (>89); Glucose,Random 110 mg/dL (74-106); Potassium 3.3 meq/L (3.5-5.1); Sodium 142 meq/L (136-145)
[2018-01-23 04:43] LABS: Alanine Aminotransferase 22 U/L (12-78); Alkaline Phosphatase 56 U/L (45-117); Total Protein 6.2 g/dL (6.4-8.2)
--- NOTE | 2018-01-23 06:09 | XR ---
EXAM DATE: 01/23/2018 5:48 AM EDT AGE/SEX: 42 years / Male INDICATIONS: Shortness of breath. CLINICAL DATA: This is the patient's subsequent encounter. Patient reports that signs and symptoms h ave been present for 2 days and indicates a pain score of 0/10. MEDICAL/SURGICAL HISTORY: Asthma. Diverticulitis. Smoker None. COMPARISON: No prior exams available for comparison. FINDINGS: A single AP view of the chest demonstrates the lungs to be symmetrically aerated without evidence of mass, infiltrate or effusion. No evidence of pneumothorax. The cardiomediastinal contours are unremar kable. Osseous structures are intact. CONCLUSION: The lungs are clear. Electronically signed by: Farzad Elias MD 01/23/2018 6:07 AM EDT
[2018-01-23] MEDS ORDERED: Metoprolol Tartrate 25 MG Tablet PO ONE (07:27)
[2018-01-23] MEDS ORDERED: Chlorhexidine Gluconate 2% 1 Pack (2 Cloths) TOPICAL ONE (07:27)
[2018-01-23] MEDS ORDERED: Sodium Chlor 0.9% Inj 500 ML IV.SIG SCH (08:00)
[2018-01-23] MEDS: Pantoprazole Inj 40 MG Vial IV.PUSH SCH (08:10)
[2018-01-23] MEDS: Folic Acid 1 MG Tablet PO SCH (08:11)
[2018-01-23] MEDS: Senna/Docusate Sodium 8.6/50 MG Tablet PO SCH ×2 (08:12→21:00)
[2018-01-23] MEDS ORDERED: Lidocaine PF 1% Inj 5 ML Syringe OTHER ONE (09:00)
[2018-01-23] MEDS ORDERED: Glycopyrrolate Inj 1 MG/5 ML Syringe IV.PUSH ONE (09:00)
--- NOTE | 2018-01-23 09:40 | GIPROC ---
[facility] [address] [facility]. [facility], [address] EGD PROCEDURE REPORT EXAM DATE: 01/23/2018 PATIENT NAME: Kali Betts MR #: [id number] BIRTHDATE: 1975 ATTENDING: Brayan Boykin MD ORDER #: [id number] DOORSHAKER: Jeffrey Sellers and Norma Godoy STATUS: inpatient INDICATIONS: The patient is a 42 yr old male here for an EGD due to hematemesis and Tylenol OD PROCEDURE PERFORMED: EGD w/ biopsy MEDICATIONS: None and Per Anesthesia. TOPICAL ANESTHETIC: none CONSENT: The patient understands the risks and benefits of the procedure and understands that these risks include, but are not limited to: sedation, allergic reaction, infection, perforation and/or bleeding. Alternative means of evaluation and treatment include, among others: physical exam, x-rays, and/or surgical intervention. The patient elects to proceed with this endoscopic procedure. medical equipment was checked for proper function. Hand hygiene and appropriate measures for infection prevention was taken. After the risks, benefits and alternatives of the procedure were thoroughly explained, Informed consent was verified, confirmed and timeout was successfully executed by the treatment team. The patient was anesthetized with topical anesthesia and the Pentax EG-[id number] endoscope was introduced through the mouth and advanced to the second portion of the duodenum. Retroflexed views revealed no abnormalities The gastroscope was then slowly withdrawn and removed. ESOPHAGUS: There was LA Class C esophagitis noted. STOMACH: There was moderate and erosive gastritis in the gastric body, gastric fundus, and gastric antrum. Multiple biopsies were performed. Multiple biopsies were performed. DUODENUM: Moderate duodenal inflammation was found in the bulb and second portion of the duodenum. ADVERSE EVENTS: There were no complications. IMPRESSIONS: 1. There was LA Class C esophagitis noted 2. There was gastritis in the gastric body, gastric fundus, and gastric antrum; multiple biopsies were performed 3. Duodenal inflammation was found in the bulb and second portion of the duodenum 4. Retroflexed views revealed no abnormalities RECOMMENDATIONS: 1. Await biopsy results. Biopsy results will not be ready for 7-10 days. If you don't hear from us in two weeks, call our office for biopsy results. 2. Cont PROTONIX 40 BID PATIENT CONDITION: stable DISPOSITION: Inpatient REPEAT EXAM: Return as needed for EGD Brayan Boykin MD eSigned: Brayan Boykin MD 01/23/2018 9:39 AM cc: PATIENT NAME: Kali Betts MR#: [id number]
[2018-01-23] MEDS ORDERED: fentaNYL Citrate Inj 100 MCG/2 ML Ampul ONE (10:20)
--- NOTE | 2018-01-23 12:16 | P.PN ---
Subjective Interval history: Nursing denies any deterioration since last night. Patient is status post EGD. Tolerated dinner yesterday last night just fine. Denies any abdominal pain or vomiting. Patient himself says he is not suicidal and wants to go home. Says if he does not get back to work tomorrow he "loses everything." Says he was just simply drinking too much. Physical Exam Vital signs: Vital Signs 01/22/18 13:00 01/22/18 16:00 01/22/18 20:00 Temperature 98.4 F 98.4 F 98.3 F Pulse Rate 61 75 65 Respiratory Rate 16 18 17 Blood Pressure 169/95 H 155/92 H 173/81 H Pulse Oximetry 96 99 01/23/18 00:00 01/23/18 04:00 01/23/18 08:00 Temperature 98.1 F 98.1 F 98.3 F Pulse Rate 70 63 83 Respiratory Rate 16 17 20 Blood Pressure 137/67 126/78 141/92 H Pulse Oximetry 96 97 97 01/23/18 09:34 01/23/18 09:47 Temperature 99.2 F Pulse Rate 67 50 L Respiratory Rate 18 18 Blood Pressure 135/80 141/89 H Pulse Oximetry 97 98 Intake & Output 01/22/18 01/23/18 01/23/18 18:59 06:59 18:59 Intake Total 1300 / 1300 2347.75 / 2347.75 1500 / 1500 Balance 1300 / 1300 2347.75 / 2347.75 1500 / 1500 Weight 93.9 kg Intake: IV 1300 / 1300 2347.75 / 2347.75 1100 / 1100 LR 1000 mL Inj 1,000 ML @ 100 1000 / 1000 1000 / 1000 1000 / 1000 mls/hr IV.CONT .Q10H [facility] Rx#: [id number] Cipro 400 MG/200 ML Inj 400 mg 200 / 200 200 / 200 In 200 ml @ 200 mls/hr IV.SIG Q12H [facility] Rx#:[id number] Flagyl 500 MG Inj 100 ML @ 100 100 / 100 100 / 100 100 / 100 mls/hr IV.SIG Q8H [facility] Rx#: [id number] Anesthesia Amount 400 / 400 Other: Date of Last Bowel Movement 01/21/18 01/20/18 Narrative: Clear lungs bilaterally, unlabored breathing Awake and alert, no acute distress Abdomen soft, nontender, nondistended Results - Labs CBC & Chem 7: 01/23/18 03:49 01/23/18 03:50 Laboratory Results - last 24 hr 01/22/18 01/22/18 01/22/18 12:55 15:27 15:27 WBC RBC Hgb 12.8 L 13.1 Hct MCV MCH MCHC RDW Plt Count MPV Neut % (Auto) Lymph % (Auto) Assumption % (Auto) Eos % (Auto) Baso % (Auto) Neut # (Auto) Lymph # (Auto) Assumption # (Auto) Eos # (Auto) Baso # (Auto) WBC Differential Differential Comment PT INR Sodium 144 Potassium 3.1 L Chloride 109 H Carbon Dioxide 25.9 Anion Gap 9 BUN 9 Creatinine 1.29 Estimated GFR 61 L Random Glucose 91 Calcium 8.3 L Total Bilirubin 0.3 AST 13 L ALT 27 Alkaline Phosphatase 60 Total Protein 6.4 D Albumin 3.2 L D Acetaminophen 01/22/18 01/22/18 01/22/18 20:47 20:47 20:47 WBC RBC Hgb 12.8 L Hct MCV MCH MCHC RDW Plt Count MPV Neut % (Auto) Lymph % (Auto) Assumption % (Auto) Eos % (Auto) Baso % (Auto) Neut # (Auto) Lymph # (Auto) Assumption # (Auto) Eos # (Auto) Baso # (Auto) WBC Differential Differential Comment PT 12.7 H INR 1.3 Sodium 140 Potassium 3.3 L Chloride 106 Carbon Dioxide 26.0 Anion Gap 8 BUN 9 Creatinine 1.26 Estimated GFR 63 L Random Glucose 81 Calcium 8.4 L Total Bilirubin 0.3 AST 11 L ALT 26 Alkaline Phosphatase 58 Total Protein 6.4 Albumin 3.1 L Acetaminophen 5.3 L 01/23/18 01/23/18 01/23/18 03:49 03:50 03:50 WBC 12.0 H RBC 4.39 L Hgb 12.8 L Hct 38.0 L MCV 86.4 MCH 29.1 MCHC 33.7 RDW 14.0 Plt Count 245 MPV 8.6 Neut % (Auto) 72.0 H Lymph % (Auto) 20.8 Assumption % (Auto) 5.7 Eos % (Auto) 0.9 Baso % (Auto) 0.6 Neut # (Auto) 8.7 H Lymph # (Auto) 2.5 Assumption # (Auto) 0.7 Eos # (Auto) 0.1 Baso # (Auto) 0.1 WBC Differential . Differential Comment Auto diff final PT 12.6 H INR 1.2 Sodium 142 Potassium 3.3 L Chloride 107 Carbon Dioxide 28.0 Anion Gap 7 BUN 8 Creatinine 1.01 Estimated GFR 81 L Random Glucose 110 H Calcium 8.5 Total Bilirubin 0.4 AST 10 L ALT 22 Alkaline Phosphatase 56 Total Protein 6.2 L Albumin 3.1 L Acetaminophen - Imaging Impressions Abdomen/Pelvis CT 01/22/18 00:00 CONCLUSION: 1. No acute findings within the abdomen and pelvis. Scattered colonic diverticula. Chest X-Ray 01/23/18 02:08 CONCLUSION: The lungs are clear. Assessment and Plan - Plan 42-year-old white male who was admitted with acetaminophen overdose, started on Mucomyst. Denys acted by law enforcement, psychiatry following. Currently status post EGD. Acetaminophen overdose Clinically resolved, tolerating p.o. intake. Completed mucomyst dose regimen, spoke to poison control, says they cleared the patient from their standpoint last night. -Psychiatry following, will need med-psych admission Vomiting Resolved, likely secondary to acetaminophen overdose/hepatotoxicity Stopping antibiotics a CT scan is unremarkable for any diverticulitis Alcohol use Marijuana use Possible suicidal ideation Psychiatry following Asthma Albuterol every 2 hours as needed for wheezing heparin Discharge Planning: Patient is medically cleared for med psych. Awaiting bed availability
[2018-01-23] MEDS ORDERED: LORazepam 1 MG Tablet PO ONE ×2 (13:59→19:43)
[2018-01-24] MEDS: Heparin - SQ 10,000 UNITS/ML Vial SQ SCH ×2 (01:52→15:16)
[2018-01-24] MEDS: Chlorhexidine Gluconate 2% 1 Pack (2 Cloths) TOPICAL SCH (04:12)
[2018-01-24 07:51] LABS: Baso % (Auto) 0.5 % (0.0-2.0); Eos # (Auto) 0.1 th/mm3 (0.0-0.4); Eos % (Auto) 1.6 % (0.0-4.0); Hematocrit 36.6 % (39.0-51.0); Hemoglobin 12.6 gm/dL (13.0-17.0); Lymph % (Auto) 21.8 % (9.0-44.0); Mean Corpuscular HGB Conc 34.5 % (32.0-36.0); Mean Corpuscular Hemoglobin 29.3 pg (27.0-34.0); Mean Corpuscular Volume 84.7 fL (80.0-100.0); Mean Platelet Volume 8.9 fL (7.0-11.0); Mono # (Auto) 0.5 th/mm3 (0.0-0.9); Mono % (Auto) 5.8 % (0.0-8.0); Neut # (Auto) 6.5 th/mm3 (1.8-7.7); Neut % (Auto) 70.3 % (16.0-70.0); Platelet Count 243 th/mm3 (150-450); Red Blood Count 4.31 mil/mm3 (4.50-5.90); White Blood Count 9.2 th/mm3 (4.0-11.0)
[2018-01-24] MEDS: Senna/Docusate Sodium 8.6/50 MG Tablet PO SCH (08:59)
[2018-01-24] MEDS: Folic Acid 1 MG Tablet PO SCH (08:59)
[2018-01-24] MEDS: Pantoprazole Inj 40 MG Vial IV.PUSH SCH (08:59)
[2018-01-24 11:36] VITALS: RESP 20
--- NOTE | 2018-01-24 11:53 | P.PNGI ---
Subjective Interval history: Patient is sitting up head of bed elevated 35 degrees denies any acute abdominal pain States dyspepsia which patient is on Protonix for re-discussed patient's EGD and findings and in depth antireflux precautions <Rekha Bess - Last Filed: 01/24/18 11:43> Physical Exam Vital signs: Vital Signs 01/23/18 12:00 01/23/18 16:00 01/23/18 20:00 Temperature 98.0 F 98 F Pulse Rate 87 60 73 Respiratory Rate 19 17 Blood Pressure 169/89 H 172/109 H Pulse Oximetry 94 L 96 01/24/18 00:00 01/24/18 04:00 01/24/18 08:00 Temperature 98 F 98.2 F 98.4 F Pulse Rate 65 63 75 Respiratory Rate 17 16 20 Blood Pressure 136/78 123/71 146/89 H Pulse Oximetry 96 96 95 Intake & Output 01/23/18 01/24/18 01/24/18 18:59 06:59 18:59 Intake Total 3460 / 3460 743 / 743 257 / 257 Balance 3460 / 3460 743 / 743 257 / 257 Weight 93.8 kg Intake: IV 2100 / 2100 743 / 743 257 / 257 LR 1000 mL Inj 1,000 ML @ 100 2000 / 2000 743 / 743 257 / 257 mls/hr IV.CONT .Q10H BRYON Rx#: [id number] Flagyl 500 MG Inj 100 ML @ 100 100 / 100 mls/hr IV.SIG Q8H BRYON Rx#: [id number] Oral 960 / 960 Anesthesia Amount 400 / 400 Other: # Voids 4 Date of Last Bowel Movement 01/23/18 - Constitutional mild distress, disheveled, cooperative, agitated (Mild anxiety over hospital stay) - Routine HEENT Exam Head: Present: normocephalic ENT: Present: mucous membranes moist - Routine Respiratory Exam Present: accessory muscle use (No shortness of breath) - Routine Abdominal Exam Present: soft, normoactive bowel sounds (Round, no tenderness) - Routine Neurological Exam Present: alert <Rekha Bess - Last Filed: 01/24/18 11:43> Vital signs: Vital Signs 01/23/18 16:00 01/23/18 20:00 01/24/18 00:00 Temperature 98 F 98 F Pulse Rate 60 73 65 Respiratory Rate 17 17 Blood Pressure 172/109 H 136/78 Pulse Oximetry 96 96 01/24/18 04:00 01/24/18 08:00 Temperature 98.2 F 98.4 F Pulse Rate 63 72 Respiratory Rate 16 20 Blood Pressure 123/71 146/89 H Pulse Oximetry 96 95 Intake & Output 01/23/18 01/24/18 01/24/18 18:59 06:59 18:59 Intake Total 3460 / 3460 743 / 743 257 / 257 Balance 3460 / 3460 743 / 743 257 / 257 Weight 93.8 kg Intake: IV 2100 / 2100 743 / 743 257 / 257 LR 1000 mL Inj 1,000 ML @ 100 2000 / 2000 743 / 743 257 / 257 mls/hr IV.CONT .Q10H BRYON Rx#: [id number] Flagyl 500 MG Inj 100 ML @ 100 100 / 100 mls/hr IV.SIG Q8H BRYON Rx#: [id number] Oral 960 / 960 Anesthesia Amount 400 / 400 Other: # Voids 4 Date of Last Bowel Movement 01/23/18 01/23/18 <Shahnaz Donaldson - Last Filed: 01/24/18 14:37> Results - Labs CBC & Chem 7: 01/24/18 06:40 01/23/18 03:50 Laboratory Results - last 24 hr 01/24/18 06:40 WBC 9.2 RBC 4.31 L Hgb 12.6 L Hct 36.6 L MCV 84.7 MCH 29.3 MCHC 34.5 RDW 14.0 Plt Count 243 MPV 8.9 Neut % (Auto) 70.3 H Lymph % (Auto) 21.8 [place] % (Auto) 5.8 Eos % (Auto) 1.6 Baso % (Auto) 0.5 Neut # (Auto) 6.5 Lymph # (Auto) 2.0 [place] # (Auto) 0.5 Eos # (Auto) 0.1 Baso # (Auto) 0.0 WBC Differential . Differential Comment Auto diff final <Rekha Bess - Last Filed: 01/24/18 11:43> - Labs CBC & Chem 7: 01/24/18 06:40 01/23/18 03:50 Laboratory Results - last 24 hr 01/24/18 06:40 WBC 9.2 RBC 4.31 L Hgb 12.6 L Hct 36.6 L MCV 84.7 MCH 29.3 MCHC 34.5 RDW 14.0 Plt Count 243 MPV 8.9 Neut % (Auto) 70.3 H Lymph % (Auto) 21.8 [place] % (Auto) 5.8 Eos % (Auto) 1.6 Baso % (Auto) 0.5 Neut # (Auto) 6.5 Lymph # (Auto) 2.0 [place] # (Auto) 0.5 Eos # (Auto) 0.1 Baso # (Auto) 0.0 WBC Differential . Differential Comment Auto diff final <Shahnaz Donaldson - Last Filed: 01/24/18 14:37> Assessment and Plan - Plan 42-year-old male who came to the hospital on 01/21/2018 [place] act, post intentional Tylenol overdose. Patient is currently being monitored in the intensive care setting and initially had nausea and vomiting with some bright red streaks of blood noted. It was also noted per the record that patient had drank a substantial amount of alcohol. Currently patient does have a decreased appetite, some nausea but no vomiting patient denies any abdominal pain no history or current diarrhea or constipation states last bowel movement brown and formed 24 hours ago. Patient does note a history of some dyspepsia onset greater than one year and notices symptoms daily usually worse after eating. Patient's had no previous EGD, and no family history of colon cancer. Patient does note history of diverticulitis greater than 3 years ago and noted an 8-day hospital stay during that time. Labs reviewed with current hemoglobin 14, PT/ INR 1.1, bilirubin and LFTs are normal Tylenol level last seen was 146.9. Patient is currently undergoing Tylenol detox in the intensive care setting. He is alert and oriented and answering simple questions. Gastroenterology was consulted to assist with possible GI bleeding, red tinged blood seen with vomiting, and according to the record some bloody stools and abdominal pain times 1 month before current admission. Hematemesis, bright red blood tinged vomitus, possibly related to gastritis, symptoms could be stress related Dyspepsia symptoms of GERD almost daily greater than 1 year, takes no medication , states Tums gives him nauseated feeling. Symptoms could be stress related Abdominal pain and bloody stools times 1 month per the record, history of diverticulitis, but denies any previous EGD, colonoscopy approximately 3 years ago if not longer, no family history of colon cancer. No CT yet for comparison and no IV antibiotics, possible diverticulitis needs to be ruled out. Symptoms could be stress related Intentional Tylenol overdose, [place] act, according to the record over a breakup with girlfriend, currently in the intensive care setting but plan is to move to private room today Labs reviewed hemoglobin 14, INR 1.1, bilirubin and LFTs normal, last Tylenol level once 46.9, EtOH 42 on admission 01/24/2018 hemoglobin 12.6 WBC count 9.2 Patient is status post EGD on 01/23/2018 which showed severe esophagitis, gastritis and duodenitis. CT scan on admission showed diverticula but no diverticulitis. Dates that he has bright red rectal bleeding often known, but has no insurance and has not been able to follow-up outpatient for any further colonoscopy. Offered colonoscopy for a.m. but patient states he is planning to discharge as soon as they will let him. He is very worried about his job Plan Diet as tolerated, avoid spicy fatty foods Reflux precautions head of bed elevated at least 30 degrees at all times Continue PPI IV for now Monitor labs Bowel regimen Needs colonoscopy outpatient Patient was seen per myself and Dr. Donaldson note was written on his behalf <Rekha Bess - Last Filed: 01/24/18 11:43> - Plan Patient was seen and examined, agree with above note patient will need colonoscopy as an outpatient, we will follow-up as needed <Shahnaz Donaldson - Last Filed: 01/24/18 14:37>
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
--- NOTE | 2018-01-24 16:45 | P.PNPSY ---
Subjective Remarks: The patient was seen today for psychiatric reevaluation. The patient is quite to be admitted, minimizing recent suicidal attempt, stating that he was just drunk. He says that he does not have any depression, and that he wants to go home and take care of his kids. He denies suicidal enemas ideation, he denies visual and auditory hallucinations. However, his who was here visiting today informed to the nurses that the patient is just trying to buy time and try to convince the doctor to go back home and commit suicide. She says that this is the second time that the patient overdosed in the last months and she does not feel safe taking the patient back home. Mental Status Examination Appearance: Appropriate Consciousness: Alert Orientation: x4 Motor Activity: Normal gait Speech: Unremarkable Language: Adequate Fund of Knowledge: Adequate Attention and Concentration: Adequate Memory: Impaired Mood: Oppositional, Irritable Affect: Blunt Thought Process & Associations: Intact Thought Content: Appropriate Hallucination Type: None Delusion Type: None Suicidal Ideation: No Suicidal Plan: No Suicidal Intention: No Homicidal Ideation: No Homicidal Plan: No Homicidal Intention: No Insight: Poor Judgment: Poor Assessment and Plan - Assessment (1) Adjustment disorder Code(s): F43.20 - Adjustment disorder, unspecified Status: Acute - Plan Plan: Patient continues to minimize recent suicide attempt, the states that the patient is just trying to convince the doctor that he is not suicidal to go home and kill himself. Patient will be admitted in psychiatry for observation, and safety. Continue one-to-one in the medical floor. Continue CIWA. Justification for Continued Inpatient Stay: Admission indicated
[2018-01-24 20:15] VITALS: O2SAT 97
[2018-01-24 20:16] VITALS: BP 182/104; PULSE 86; TEMP 98.8
== END 2018-01-24 19:38 ==
LOC: NEPE 18:29 → NEDA 01-22 01:05 → HIMC 01-22 03:00 → N04 01-22 14:35
PROVIDERS: ADMIT Family Medicine; ATTEND Family Medicine
PROC: PANENDO (2018-01-23 09:00)

== ENCOUNTER 2018-01-24 18:11 | Inpatient (IN) ==
[2018-01-24] MEDS ORDERED: LORazepam 1 MG Tablet PO PRN ×2 (21:02→21:24)
[2018-01-24] MEDS ORDERED: Aluminum/Magnesium/Simethacone Susp 30 ML UDC PO PRN (21:02)
[2018-01-24] MEDS ORDERED: Acetaminophen 325 MG Tablet PO PRN (21:02)
[2018-01-24 22:04] VITALS: O2SAT 98
[2018-01-25 05:44] VITALS: BP 170/117; PULSE 108; RESP 18; TEMP 98.2
[2018-01-25 11:02] LABS: Anion Gap 7 meq/L (5-15); Blood Urea Nitrogen 9 mg/dL (7-18); Calcium 8.7 mg/dL (8.5-10.1); Carbon Dioxide 28.7 meq/L (21.0-32.0); Chloride 106 meq/L (98-107); Cholesterol 194 mg/dL (120-200); Glomerular Filtration Rate Greater Than 89 mL/min (>89); Glucose,Random 107 mg/dL (74-106); Potassium 3.6 meq/L (3.5-5.1); Sodium 142 meq/L (136-145)
[2018-01-25 11:05] LABS: Chol/HDL Ratio 5.62 Ratio; HDL Cholesterol 34.5 mg/dL (40.0-60.0); LDL Cholesterol,Calculated 104 mg/dL (0-99); Triglycerides 280 mg/dL (42-150)
--- NOTE | 2018-01-25 11:18 | P.HPPSY ---
Provisional Diagnosis Admission Date: January 24, 2018 19:49 [place].: 1. Alcohol abuse with intoxication with unspecified complication, intoxication now resolved 2. Cannabis abuse [place] II.: Deferred Competence Certification of Person's Competence To Provide Express and Informed Consent I have personally examined Kali Betts, a person being served at [facility] [[email or web address]] on, January 25, 2018 1118. Express and informed consent means consent voluntarily given in writing, by a competent person, after sufficient explanation and disclosure of the subject matter involved to enable the person to make a knowing and willful decision without any element of force, fraud, deceit, duress, or other form of constraint or coercion. This person is 18 years of age or older, is not now known to be incompetent to consent to treatment with a guardian advocate, and does not have a health care surrogate or proxy currently making medical treatment decisions. I have found this person to be one of the following: [] Competent to provide express and informed consent, as defined above, for voluntary admission to this facility and is competent to provide express and informed consent for treatment. He/she has the consistent capacity to make well reasoned, willful, and knowing decisions concerning his or her medical or mental health treatment. The person fully and consistently understands the purpose of the admission for examination/placement and is fully capable of personally exercising all rights assured [place] Incompetent to provide express and informed consent to voluntary admission, and this is incompetent to provide express and informed consent to treatment. The person must be transferred to involuntary status and a petition for a guardian advocate filed with the Circuit Court. [X] Refusing to provide express and informed consent to voluntary admission but is competent to provide express and informed consent for treatment. The person must be discharged or transferred to involuntary status. Form shall be completed within 24 hours of a person's arrival at the receiving facility and filed in the clinical record of each person: 1. Admitted on a voluntary basis 2. Permitted to provide express and informed consent to his/her own treatment 3. Allowed to transfer from involuntary to voluntary status 4. Prior to permitting a person to consent to his or her own treatment after having been previously found incompetent to consent to treatment. History of Present Illness Capacity: Has capacity Chief Complaint: [place]arl[place] Act History of Present Illness: Mr. Betts is a 42-year-old male with a chart history of adjustment disorder and alcohol use issues who presented initially to the ED following a Tylenol overdose in the setting of alcohol intoxication. He was medically admitted for management of this overdose. Peak Tylenol level was 232.9. Patient was seen in psychiatric consultation on the medical floor by Dr. Hernandez and later reevaluated by Dr. Lyons. I note in Dr. Lyons's note that someone claiming to be patient's (he is not presently) was telling staff that the patient was still suicidal. Reviewing the electronic medical record, I note that he was seen in consultation by myself in 2016, again with behavioral disturbance in the setting of alcohol intoxication. Patient seen and examined with counselor and nurse. Chart reviewed. Case discussed with nursing staff. No behavioral issues noted overnight. No evidence of any suicidality or homicidality on the inpatient unit. Case discussed in treatment team. On my examination today, the patient is clinically sober. He describes his presenting ingestion to alcohol intoxication. He tells me, "I don't drink. Liquor and I don't get along." He says that he was distressed because his ex- is moving with their children to [place] and so he began drinking liquor with his neighbor. The next thing he remembers, he awoke in the hospital. He does note that he had been nursing a headache for several days prior to coming into the hospital, and he may have taken the Tylenol for this problem but miscalculated the dose in his intoxicated state. In any event, he does not recall his presenting Tylenol ingestion. Presently, the patient denies any suicidal or homicidal ideation, intent or plan. He says that he wants to live for his children. He says that he plans to move in with his ex- and is also looking for jobs in [place] so that he can be close to his children after they move. Affect is euthymic, and I can elicit no depressive or hypomanic/manic symptoms presently. He is future oriented. He denies any audiovisual hallucinations. I can elicit no paranoia, no ideas of reference, no feelings of thought manipulation or other delusional material. There is no evidence of impairment in reality construction. Remainder of the psychiatric ROS is negative. He has no acute physical complaints. Blood pressure has been somewhat elevated but the patient denies any current headache, chest pain, shortness of breath or other symptoms of hypertensive urgency/emergency. He is requesting discharge from the inpatient psychiatric unit today. With the patient's permission, I have obtained collateral information from his ex- Mirna at [phone]. Mirna notes that she has known the patient for over 20 years. She has visited with and spoken with the patient since he has been hospitalized. She has absolutely no safety concerns about the patient being a risk of harm to himself or others at this point. She attributes his presenting overdose to alcohol intoxication, noting that he is typically never more than an occasional drinker. She is comfortable with having him stay in her home. I have recommended that she secure the home environment of potential means of harm to self/others including but not limited to guns, knives and medications out of an abundance of caution. I have educated her regarding the mechanisms in place to have the patient returned to the hospital for further psychiatric evaluation including Mcfarlane act and ex parte. Being the closest person to a patient has, I did inquire as to whether she had told staff patient was still suicidal as alleged in Dr. Lyons's note. She denies doing so. With the patient's permission, I have obtained additional collateral information from friend memo at [phone]. Filiberto notes that he has known the patient for 25+ years. He echoes collateral from June that the patient is not typically a drinker but that when he drinks "bad things like this happen." Filiberto also has no safety concerns about the patient being discharged today. He notes that he is "absolutely no risk of harm to himself or others." Past psychiatric history: The patient denies a history of psychiatric diagnosis. He is not presently under the care of an outpatient psychiatrist. He denies a history of psychiatric admissions. He denies a history of suicide attempts. He denies a history of violent behavior except that he does note that he pled to simple assault after he flicked a cigarette at his ex- and was on probation for 6 months for this. Family history: The patient denies any family history of serious mental illness or suicide. Chemical dependency history: The patient endorses drinking "the occasional beer. " He also smokes cannabis "once in a while." He also smokes 2 packs a day of cigarettes. Patient insists that he will swear off alcohol going forward. I have recommended outpatient chemical dependency evaluation and treatment. Social history: Patient's father was a Marine. Patient is with 5 children as well as a grandchild. 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 He denies any history himself. Denies any legal history other than the assault noted above. He denies any access to guns or firearms. He denies any history of abuse including physical, verbal or sexual abuse. No other trauma history. He is in a pool league. - Inpatient Certification Plans for Post Hospital Care: Home Review of Systems All other systems reviewed negative except as stated in HPI [facility] - History History Provided By: Patient, Medical Record - Medical History Medical History: Medical History (Last Reviewed 01/24/18 @ 20:12 by Shantal Snider RN) Asthma Diverticulitis - Surgical History Surgical History: Surgical History (Last Reviewed 01/21/18 @ 19:09 by Sade Vasquez) No history of previous surgery - Family History Family History: Family History (Last Updated 01/22/18 @ 02:40 by Elsi Rawls MD) Father Asthma Sister Asthma - Tobacco History Second Hand Smoke Exposure: Yes Tobacco Use In Past 30 Days: Yes Smoking Status: Current every day smoker Tobacco Type: Cigarettes Packs Per Day: 2 - Alcohol History How Often Do You Have a Drink Containing Alcohol: 2 to 4 times a month - Substance Use History Substance History: No History of Abuse - Immunization History Tetanus Immunization: Unable to Assess Hx Influenza Vaccine This Season: No Quality Measures - Psychiatric History Psychological trauma history: See above - Patient Strengths Patient's strengths (minimum of 2): Attending to basic needs. Verbally fluent. Medications and Allergies Active Medications: Active Medications Acetaminophen (Tylenol) 650 mg PO Q4H PRN PRN Reason: Pain 1-5 or Temp >101F Al Hydrox/Mg Hydrox/Simethicone (Mag-Al Plus Susp Liq) 30 ml PO Q6H PRN PRN Reason: DYSPEPSIA Al Hydroxide/Mg Hydroxide (Milk Of Magnesia Liq) 30 ml PO DAILY PRN PRN Reason: Mild Constipation Flumazenil (Romazecon Inj) 0.2 mg IV.PUSH Q1M PRN PRN Reason: OVERSEDATION Lorazepam (Ativan) 1 mg PO Q6H PRN PRN Reason: MODERATE TO SEVERE ANXIETY Lorazepam (Ativan Inj) 1 mg IM Q6H PRN PRN Reason: MODERATE TO SEVERE ANXIETY Lorazepam (Ativan) 1 mg PO Q4H PRN PRN Reason: for CIWA 8-10 Lorazepam (Ativan) 2 mg PO Q2H PRN PRN Reason: for CIWA 11-14 Lorazepam (Ativan Inj) 2 mg IV.PUSH Q2H PRN PRN Reason: for CIWA 11-14 Lorazepam (Ativan Inj) 2 mg IV.PUSH Q1H PRN PRN Reason: for CIWA 15-20 Lorazepam (Ativan Inj) 2 mg IV.PUSH Q15M PRN PRN Reason: for CIWA > 20 Lorazepam (Ativan Inj) 1 mg IV.PUSH Q4H PRN PRN Reason: for CIWA 8-10 Nicotine (Habitrol 21 Mg Patch.24 Hr) 1 patch T-DERMAL DAILY [facility] Last Admin: 01/25/18 08:31 Dose: 1 patch Patch Removal (Remove Old Patch) 1 each T-DERMAL HS [facility] Allergies Allergy/AdvReac Type Severity Reaction Status Date / Time hazelnut Allergy Intermediate SOB/ASTHMA Verified 01/21/18 18:52 ATTACK Results - Labs CBC & Chem 7: 01/25/18 10:05 Labs: Laboratory Results - last 24 hr 01/25/18 10:05 Sodium 142 Potassium 3.6 Chloride 106 Carbon Dioxide 28.7 Anion Gap 7 BUN 9 Creatinine 0.88 Estimated GFR Greater than 89 Random Glucose 107 H Calcium 8.7 Triglycerides 280 H Cholesterol 194 LDL Cholesterol, Calc 104 H HDL Cholesterol 34.5 L Cholesterol/HDL Ratio 5.62 Labs reviewed. Toxicological findings from initial presentation noted. Exam Vital signs: Vital Signs 01/24/18 19:45 01/25/18 05:43 Temperature 98.4 F 98.2 F Pulse Rate 106 H 108 H Respiratory Rate 17 18 Blood Pressure 171/95 H 170/117 H Pulse Oximetry 98 98 Intake & Output 01/24/18 01/25/18 01/25/18 18:59 06:59 18:59 Weight 94.9 kg Other: Weight On Admission 94.9 kg Narrative: Physical exam was completed by primary team on the medical floor. On my examination today, the patient appears to be in no acute physical distress. No motor abnormalities noted. No signs of alcohol intoxication or withdrawal noted. Labs and vital signs reviewed. Mental Status Examination Appearance: Appropriate Consciousness: Alert Orientation: x4 Motor Activity: Normal gait Speech: Unremarkable Language: Adequate Fund of Knowledge: Adequate Attention and Concentration: Adequate Memory: Unremarkable Mood: Appropriate Affect: Appropriate, Euthymic Thought Process & Associations: Intact, Logical, Goal directed, Linear Thought Content: Appropriate Hallucination Type: None Delusion Type: None Suicidal Ideation: No Suicidal Plan: No Suicidal Intention: No Homicidal Ideation: No Homicidal Plan: No Homicidal Intention: No Mental Status Exam Remarks: Insight and judgment are perhaps fair. Assessment and Plan - Assessment (1) Alcohol abuse with intoxication with complication Code(s): F10.129 - Alcohol abuse with intoxication, unspecified Status: Acute (2) Marijuana abuse Code(s): F12.10 - Cannabis abuse, uncomplicated Status: Chronic - Plan Plan: This is a 42-year-old male with psychiatric history as detailed above who presents in transfer from the medical floor following a Tylenol overdose in the setting of alcohol intoxication. On my examination today, the patient is clinically sober. He denies any suicidal or homicidal ideation, intent or plan. There is no evidence of unstable mental illness as defined under the Mcfarlane act in this patient at this time. He appears to be attending to his basic needs. I have obtained reassuring collateral information from the patient 's ex- and also from an old friend. Synthesizing this information and based on the available evidence, I swaging machine adjuster that the patient does not meet the Mcfarlane act criteria. I have lifted the Mcfarlane act. I have offered the patient voluntary psychiatric hospitalization for observation but he has declined. He does seem to have substance use issues as noted above, and I recommended to the patient that he pursue outpatient chemical dependency evaluation and treatment as well as abstain from substances of abuse going forward. Having no basis to retain the patient over his objection, I will arrange for his discharge today with psychiatric follow-up as arranged by counselor. Patient is also to follow up with primary care. I will request the hospitalist evaluate the patient prior to discharge as his blood pressure is somewhat elevated and he does not have any signs of alcohol withdrawal on exam. I have provided the patient with prescriptions for thiamine and folate. This note serves also as my discharge summary. Justification for Continued Inpatient Stay: N/A.
[2018-01-25 12:14] LABS: Hemoglobin A1c 5.5 % (4.3-6.0)
--- NOTE | 2018-01-25 13:16 | P.CON ---
History of Present Illness Service: [facility] Consult date: 01/25/18 Requesting Physician: Kali Pearson Reason for Consult: Elevated BP Primary Care Provider: UNKNOWN Chief Complaint: headache History of Present Illness: This is 42-year-old male with past medical history of asthma, diverticulitis, tobacco abuse who was brought into [facility] emergency department by law enforcement under [place] Act. Reportedly he had made suicidal statements to his girlfriend and had texted her pictures of himself taking pills. When law enforcement encountered him he jumped into the [place] and eventually was subdued with the aid of pepper spray. When he was evaluated by the emergency department provider he denied suicidality and said only that he "drank 2 bottles of [place]". Laboratory workup revealed EtOH level of 42, Tylenol level 233, salicylate level 9.9, UDS +THC. Bicarb was 18 with anion gap of 13 and normal creatinine. Transaminases are not elevated. Coags are pending. Mucomyst IV was initiated. Pt. eventually admitted to taking multiple pills "sometime during the afternoon [of 01/21]" He stated he thought these were primarily anti-inflammatory medications that he had been prescribed when he had a prior knee injury. He denies any prior prescriptions for psychotropic medications, anticonvulsants, or antihypertensives and denies ingestion of iron. Patient was admitted to the ICU , started on N-acetylcysteine for Tylenol toxicity. Poison control was following. GI followed for tylenol toxicity and hematemesis. S/P Patient is status post EGD on 01/23/2018 which showed severe esophagitis, gastritis and duodenitis. CT scan on admission showed diverticula but no diverticulitis. Patient's GI status significantly improved did not have any further nausea vomiting or abdominal pain. Acetaminophen levels stabilized and hepatic function remained intact. Psychiatry had Mcfarlane acted the patient and ultimately deemed him appropriate for psychiatric admission for suicidal ideation. Pt. now in psych unit. [facility] services for elevated BP. Patient denies any history of hypertension. During previous admission, he was noted with blood pressures consistently elevated. Denies prior history of coronary artery disease, no hyperlipidemia, no diabetes, hypertension. Indicates that prior to coming into the hospital he had a persisting headache. He does not have much follow-up with PCP. Today's blood pressures in the 170s. Denies any chest pain, shortness of breath, no nausea, no vomiting, no diarrhea. No fever. There is a possibility he may be going home today. Review of Systems All other systems reviewed negative except as stated in HPI [facility] - History History Provided By: Patient, Medical Record - Medical History Medical History: Medical History (Last Reviewed 01/25/18 @ 13:15 by IVAN Bishop) Asthma Diverticulitis - Surgical History Surgical History: Surgical History (Last Reviewed 01/25/18 @ 13:15 by IVAN Bishop) No history of previous surgery - Family History Family History: Family History (Last Updated 01/22/18 @ 02:40 by Elsi Rawls MD) Father Asthma Sister Asthma - Social History I have reviewed the patient's Social History: Yes - Tobacco History Second Hand Smoke Exposure: Yes Tobacco Use In Past 30 Days: Yes Smoking Status: Current every day smoker Tobacco Type: Cigarettes Packs Per Day: 2 - Alcohol History How Often Do You Have a Drink Containing Alcohol: 2 to 4 times a month - Substance Use History Substance History: Active Abuse (darrenana) - Immunization History Tetanus Immunization: Unable to Assess Hx Influenza Vaccine This Season: No Medications and Allergies Active Medications: Active Medications Acetaminophen (Tylenol) 650 mg PO Q4H PRN PRN Reason: Pain 1-5 or Temp >101F Al Hydrox/Mg Hydrox/Simethicone (Mag-Al Plus Susp Liq) 30 ml PO Q6H PRN PRN Reason: DYSPEPSIA Al Hydroxide/Mg Hydroxide (Milk Of Magnesia Liq) 30 ml PO DAILY PRN PRN Reason: Mild Constipation Clonidine HCl (Catapres) 0.1 mg PO Q8HR PRN PRN Reason: SBP>180 or DBP>100 Flumazenil (Romazecon Inj) 0.2 mg IV.PUSH Q1M PRN PRN Reason: OVERSEDATION Lorazepam (Ativan) 1 mg PO Q6H PRN PRN Reason: MODERATE TO SEVERE ANXIETY Lorazepam (Ativan Inj) 1 mg IM Q6H PRN PRN Reason: MODERATE TO SEVERE ANXIETY Lorazepam (Ativan) 1 mg PO Q4H PRN PRN Reason: for CIWA 8-10 Lorazepam (Ativan) 2 mg PO Q2H PRN PRN Reason: for CIWA 11-14 Lorazepam (Ativan Inj) 2 mg IV.PUSH Q2H PRN PRN Reason: for CIWA 11-14 Lorazepam (Ativan Inj) 2 mg IV.PUSH Q1H PRN PRN Reason: for CIWA 15-20 Lorazepam (Ativan Inj) 2 mg IV.PUSH Q15M PRN PRN Reason: for CIWA > 20 Lorazepam (Ativan Inj) 1 mg IV.PUSH Q4H PRN PRN Reason: for CIWA 8-10 Nicotine (Habitrol 21 Mg Patch.24 Hr) 1 patch T-DERMAL DAILY [facility] Last Admin: 01/25/18 08:31 Dose: 1 patch Patch Removal (Remove Old Patch) 1 each T-DERMAL HS [facility] Allergies Allergy/AdvReac Type Severity Reaction Status Date / Time hazelnut Allergy Intermediate SOB/ASTHMA Verified 01/21/18 18:52 ATTACK Physical Exam Vital signs: Vital Signs 01/24/18 19:45 01/25/18 05:43 Temperature 98.4 F 98.2 F Pulse Rate 106 H 108 H Respiratory Rate 17 18 Blood Pressure 171/95 H 170/117 H Pulse Oximetry 98 98 Intake & Output 01/24/18 01/25/18 01/25/18 18:59 06:59 18:59 Weight 94.9 kg Other: Weight On Admission 94.9 kg Narrative: GENERAL: Well-nourished, well-developed patient in no apparent distress. SKIN: Warm and dry. HEAD: Atraumatic. Normocephalic. EYES: Pupils equal and round. No scleral icterus. No injection or drainage. ENT: No nasal bleeding or discharge. Mucous membranes pink and moist. NECK: Trachea midline. No JVD. CARDIOVASCULAR: Regular rate and rhythm. RESPIRATORY: No accessory muscle use. Clear to auscultation. Breath sounds equal bilaterally. GASTROINTESTINAL: Abdomen soft, non-tender, nondistended. Hepatic and splenic margins not palpable. MUSCULOSKELETAL: Extremities without clubbing, cyanosis, or edema. No obvious deformities. NEUROLOGICAL: Awake and alert. No obvious cranial nerve deficits. Motor grossly within normal limits. Five out of 5 muscle strength in the arms and legs. Normal speech. PSYCHIATRIC: Appropriate mood and affect; insight and judgment normal. Assessment and Plan - Plan 42-year-old white male who was admitted with acetaminophen overdose, started on Mucomyst. Initially admitted to ICU. Was stabilized. Underwent EGD. Pt. now admitted under [place]farl[place] Act to psych S/P Acetaminophen overdose--Clinically resolved, tolerating p.o. intake. Completed mucomyst dose regimen -psych following, may be going home today Elevated BP, has had persistent headache prior to admission. BP has been elevated since admission -Continue clonidine as needed We will start Norvasc 5 mg p.o. daily. Hematemesis Resolved Status post EGD which showed severe esophagitis, gastritis and duodenitis -will restart Protonix 40 mg PO BID -f/u GI as OP Alcohol use Marijuana use Possible suicidal ideation Psychiatry following -Ativan PRN Asthma -continue duonebs PRN Tobacco abuse -counseling done -continue with Nicotine patch Thank you for this consultation If Blood pressure 160 or less after Norvasc, okay to discharge Patient agrees to continue taking medication as outpatient, Rx left in place Needs to f/u with PCP Code Status: Full code Discussed Condition With: RN, pt Discharge Planning: per psych team
[2018-01-25] MEDS ORDERED: amLODIPine 5 MG Tablet PO SCH (13:30)
== END 2018-01-25 16:40 | disposition home or self-care (01) ==
LOC: H270 19:49
PROVIDERS: ADMIT Psychiatry & Neurology Psychiatry; ATTEND Psychiatry & Neurology Psychiatry
CPT/HCPCS: 80048; 80061; 83036